=== PATIENT | female | born 1950 | race African-American/Black ===

== ENCOUNTER 2017-08-21 16:45 | Inpatient (IN) | payer OTHER ==
[2017-08-21 17:18] LABS: Arterial Blood Carboxyhemoglob 4.5 % (0-1.5); Blood Gas Oxyhemoglobin 86.3 % (94-97); Blood O2 Saturation 91.3 % (92-98.5)
--- NOTE | 2017-08-21 17:44 | RAD REPORT ---
EXAM DESCRIPTION: RAD - Chest Single View - 08/21/2017 5:35 pm CLINICAL HISTORY: Chest pain. COMPARISON: 01/19/2017 FINDINGS: Portable technique limits examination quality. Extensive bilateral pulmonary opacities are present, greater on the right, likely indicating pulmonar y edema or pneumonia. The heart is mildly prominent size. No displaced fractures.Tracheostomy tube is in place with tip above the brittnee.
[2017-08-21 17:55] LABS: Absolute Lymphocytes (CBC) 1.2 K/uL (0.7-4.9); Absolute Monocytes 0.9 K/uL (0.1-1.3); Absolute Neutrophil 5.4 K/uL (1.8-8.0); Eosinophils % 1.5 % (0-4.4); Hematocrit 39.3 % (36.0-45.0); Lymphocytes % 15.3 % (15.3-44.8); MCH 28.6 pg (27.0-35.0); MCV 92.2 fL (80-100); MPV 10.1 fL (7.6-11.3); Monocytes % 11.9 % (3.3-12.3); RBC Red Blood Cell Count 4.26 M/uL (3.86-4.86)
[2017-08-21 17:59] LABS: Protime INR 0.93
[2017-08-21 18:06] LABS: Potassium 5.2 mEq/L (3.6-5.0)
[2017-08-21 18:12] LABS: Albumin 4.1 g/dL (3.2-5.5); Bilirubin Direct 0.2 mg/dL (0-0.2); Bilirubin Total 0.3 mg/dL (0.3-1.2); Magnesium 1.9 mg/dL (1.8-2.5); Protein, Total 7.7 g/dL (6.0-8.3)
--- NOTE | 2017-08-21 18:12 | RAD REPORT ---
EXAM DESCRIPTION: CT - Head Brain Wo Cont - 08/21/2017 6:02 pm CLINICAL HISTORY: Altered consciousness COMPARISON: 10/01/2014, 02/18/2013 TECHNIQUE: All CT scans are performed using dose optimization technique as appropriate and may inclu de automated exposure control or mA/KV adjustment according to patient size. FINDINGS: No intracranial hemorrhage, hydrocephalus or extra-axial fluid collection.Moderate hypoden sity throughout the cerebral white matter is noted, progressive since the comparative study.No eviden ce of midline shift. The paranasal sinuses and mastoids are clear. The calvarium is intact. Vertebral arteries calcified. IMPRESSION: No acute intracranial abnormality. Mild to moderate progression in white matter hypodensity since comparative study.
[2017-08-21 18:55] LABS: Arterial Blood Carboxyhemoglob 3.8 % (0-1.5); Blood Gas Oxyhemoglobin 90.2 % (94-97); Blood O2 Saturation 94.9 % (92-98.5)
[2017-08-21] MEDS ORDERED: CEFTRIAXONE/SWI 1gm 1 GM/10 ML SYR ONE ×2 (19:21→19:53)
[2017-08-21] MEDS ORDERED: IPRATROPIUM BROM 0.5MG/2.5ML ONE (19:35)
[2017-08-21] MEDS ORDERED: ALBUTEROL 2.5 MG/3 ML NEB SOL ONE ×2 (19:35→20:13)
[2017-08-21] MEDS ORDERED: NA CHLORIDE 0.9% 1,000 ML ONE (19:53)
[2017-08-21] MEDS ORDERED: AZITHROMYCIN 500 MG/250 ML BAG ONE (19:53)
[2017-08-21] MEDS ORDERED: CLINDAMYCIN 900MG/D5W 900 MG/50 ML BAG IV ONE (19:53)
[2017-08-21 21:52] LABS: Urine Blood NEGATIVE (NEG); Urine Glucose NEGATIVE (NEG); Urine Protein 3+ (NEG); Urine pH 5.5 (5.0-7.0)
[2017-08-21] MEDS ORDERED: VANCOMYCIN 1.5 GM in NA CHLORIDE 0.9% 250 ML IVPB SCH (23:00)
[2017-08-21] MEDS ORDERED: FENTANYL CITR 100 MCG/2 ML ONE (23:01)
--- NOTE | 2017-08-21 23:05 | EDPHYS ---
Physician Documentation [facility] Name: Avelina Chino Age: 66 yrs Sex: Female : 1950 Arrival Date: 08/21/2017 Time: 16:53 Bed 3 Private MD: ED Physician Aaron Torres HPI: 08/21 22:45 This 66 yrs old Black Female presents to ER via Unassigned with complaints of Altered wa Mental Status. 22:45 The patient presents with per family, decreased mental status since yesterday. pt h/o wa tracheostomy. family advise, new lesions or brain and spinal cord per recent doctor's visit. pt opens eyes to voice but unable to give history. Onset: The symptoms/episode began/occurred yesterday. Possible causes: unknown. Associated signs and symptoms: Pertinent negatives: diarrhea, seizure, vomiting. Current symptoms: In the emergency department the patient's symptoms are unchanged from the initial presentation. It is unknown whether or not the patient has had similar symptoms in the past. The patient has been recently seen by a physician:. 22:47 Patient's baseline: Neuro: alert and fully oriented, Motor: no deficits, Speech: normal.wa Historical: - Allergies: 18:38 Iodine; sg 18:38 Lisinopril; sg - PMHx: 18:38 Atrial Fib; CHF; COPD; Diabetes - NIDDM; Hyperlipidemia; Hypertension; Pneumonia; Renal sg Disease; - Immunization history:: Adult Immunizations up to date. - Social history:: Smoking status: Patient/guardian denies using tobacco. - Ebola Screening: : Patient negative for fever greater than or equal to 101.5 degrees Fahrenheit, and additional compatible Ebola Virus Disease symptoms Patient denies exposure to infectious person Patient denies travel to an Ebola-affected area in the 21 days before illness onset No symptoms or risks identified at this time. ROS: 22:55 Constitutional: Negative for fever, chills, and weight loss, Eyes: Negative for injury, wa pain, redness, and discharge, ENT: Negative for injury, pain, and discharge, Neck: Negative for injury, pain, and swelling, Cardiovascular: Negative for chest pain, palpitations, and edema, Abdomen/GI: Negative for abdominal pain, nausea, vomiting, diarrhea, and constipation, Back: Negative for injury and pain, : Negative for injury, bleeding, discharge, and swelling, MS/Extremity: Negative for injury and deformity, Skin: Negative for injury, rash, and discoloration, Psych: Negative for depression, anxiety, suicide ideation, homicidal ideation, and hallucinations. 22:55 Respiratory: Positive for shortness of breath. 22:55 Neuro: Positive for altered mental status. Exam: 22:55 Head/Face: Normocephalic, atraumatic. Eyes: Pupils equal round and reactive to light, wa extra-ocular motions intact. Lids and lashes normal. Conjunctiva and sclera are non-icteric and not injected. Cornea within normal limits. Periorbital areas with no swelling, redness, or edema. ENT: Nares patent. No nasal discharge, no septal abnormalities noted. Tympanic membranes are normal and external auditory canals are clear. Oropharynx with no redness, swelling, or masses, exudates, or evidence of obstruction, uvula midline. Mucous membranes moist. Cardiovascular: Regular rate and rhythm with a normal S1 and S2. No gallops, murmurs, or rubs. Normal PMI, no JVD. No pulse deficits. Abdomen/GI: Soft, non-tender, with normal bowel sounds. No distension or tympany. No guarding or rebound. No evidence of tenderness throughout. Back: No spinal tenderness. No costovertebral tenderness. Full range of motion. Skin: Warm, dry with normal turgor. Normal color with no rashes, no lesions, and no evidence of cellulitis. MS/ Extremity: Pulses equal, no cyanosis. Neurovascular intact. Full, normal range of motion. 22:55 Constitutional: The patient appears lethargic, somnolent 22:55 Neck: External neck: noted trach in midline. 22:55 Respiratory: the patient does not display signs of respiratory distress, Respirations: shallow respirations, Breath sounds: coarse bilaterally. 22:55 Neuro: Orientation: somnolent although opens eyes to voice and moves appropriately to command. Vital Signs: 16:54 BP 143 / 70; Pulse 69; Resp 14; Pulse Ox 85% on 30% Venturi mask; Pain 0/10; ss 18:38 BP 134 / 70; Pulse 72; Resp 17; Pulse Ox 100% on 100% Simple Mask; sg 20:54 BP 93 / 58; Pulse 69; Resp 20; Pulse Ox 94% ; rv 21:09 BP 94 / 66; Pulse 67; Resp 16; Pulse Ox 100% on ETT vent; mg2 22:22 BP 132 / 86; Pulse 67; Resp 20; Pulse Ox 100% on ETT vent; jd3 23:38 BP 93 / 80; Pulse 71; Resp 18 S; Pulse Ox 100% on ETT vent; Pain 0/10; jd3 18:38 to trach sg 20:54 on ventilator thru trache tube rv 21:09 on ventilator via trache tube mg2 22:22 on ventilator via trache tube jd3 23:38 vent used as Bipap jd3 Procedures: 23:01 Performed trach replacement: Pt's uncuffed trach removed. replaced with a cuff one on sd first attempt. bilateral lung sounds noted post procedure. no complications. MDM: 19:30 Patient medically screened. sd 22:58 Differential Diagnosis: CVA, electrolyte abnormality, hypoglycemia, intracranial bleed, wa pneumonia, sepsis, UTI, volume depletion. Data reviewed: vital signs, nurses notes, lab test result(s), EKG, radiologic studies. Test interpretation: by ED physician or midlevel provider: CXR: bilateral pulm infiltrates. labs noted for 3+ proteinuria. renal insufficiency. K of 5.2. . Response to treatment: the patient's symptoms have markedly improved after treatment. Physician consultation: Leonardo Claire MD. ED course: changed trach to a cuffed one to allow for venting. abd given broadly to cover for pneumonia. 23:03 Test interpretation: by ED physician or midlevel provider: ABG noted for hypercarbia. sd 08/21 17:02 Order name: Basic Metabolic Panel; Complete Time: 19:18 [facility] 08/21 17:02 Order name: BNP; Complete Time: 19:18 [facility] 08/21 17:02 Order name: CBC with Diff; Complete Time: 18:08 [facility] 08/21 17:02 Order name: LFT's; Complete Time: 19:18 [facility] 08/21 17:02 Order name: Magnesium; Complete Time: 19:18 [facility] 08/21 17:02 Order name: PT-INR; Complete Time: 18:08 [facility] 08/21 17:02 Order name: Ptt, Activated; Complete Time: 18:08 [facility] 08/21 17:02 Order name: Troponin (emerg Dept Use Only); Complete Time: 19:18 [facility] 08/21 17:17 Order name: ABG; Complete Time: 18:08 bd 08/21 17:27 Order name: Sputum Culture sv 08/21 18:11 Order name: Blood Culture Adult (2) kdr 08/21 18:11 Order name: Urine Culture kdr 08/21 18:48 Order name: ABG bd 08/21 18:49 Order name: ABG Arterial Blood Gas; Complete Time: 22:33 EDMS 08/21 22:34 Interpretation: ABGPH 7.13. wa 08/21 17:02 Order name: XRAY Chest (1 view); Complete Time: 18:08 kdr 08/21 17:02 Order name: EKG; Complete Time: 17:03 kdr 08/21 17:02 Order name: Cardiac monitoring; Complete Time: 18:35 kdr 08/21 17:02 Order name: CT Head Brain wo Cont; Complete Time: 18:13 kdr 08/21 18:09 Order name: BIPAP [facility] 08/21 20:39 Order name: Urine Dipstick--Ancillary (enter results); Complete Time: 22:33 eb 08/22 00:34 Order name: ABG Arterial Blood Gas EDMT 08/22 00:42 Order name: Lactate EDMT 08/22 01:32 Order name: Procalcitonin [facility] 08/21 17:02 Order name: EKG - Nurse/Tech; Complete Time: 18:35 kdr 08/21 17:02 Order name: IV Saline Lock; Complete Time: 18:35 kdr 08/21 17:02 Order name: Labs collected and sent; Complete Time: 18:35 kdr 08/21 17:02 Order name: O2 Per Protocol; Complete Time: 18:35 kdr 08/21 17:02 Order name: O2 Sat Monitoring; Complete Time: 18:35 [facility] 08/21 17:02 Order name: Urine Dipstick-Ancillary (obtain specimen); Complete Time: 21:23 kdr 08/21 18:11 Order name: Venegas; Complete Time: 18:35 kdr Administered Medications: 19:31 Drug: Rocephin - (cefTRIAXone) 1 grams Route: IVPB; Infused Over: 30 mins; Site: right rv antecubital; 21:31 Follow up: Response: No adverse reaction rv 19:43 Drug: Albuterol 2.5 mg Route: Inhalation; ak1 20:04 Drug: Zithromax 500 mg Route: IVPB; Infused Over: 1 hrs; Site: right antecubital; ak1 21:30 Follow up: Response: No adverse reaction; IV Status: Completed infusion rv 20:04 Drug: NS 0.9% 1000 ml Route: IV; Rate: 1 bolus; Site: right antecubital; ak1 20:05 Drug: Rocephin - (cefTRIAXone) 1 grams Route: IVPB; Infused Over: 30 mins; Site: right ak1 antecubital; 21:31 Follow up: Response: No adverse reaction rv 21:23 Drug: Clindamycin 900 mg Route: IVPB; Infused Over: 30 mins; Site: right antecubital; mg2 23:00 Follow up: Response: No adverse reaction rv 23:02 Drug: fentaNYL (PF) 25 mcg Route: IVP; Site: right antecubital; mg2 08/22 01:07 Follow up: Response: No adverse reaction; Pain is decreased mg2 Disposition: 08/21 23:03 Critical Care:. sd Disposition: 08/21/17 23:04 Hospitalization ordered by Leonardo Claire for Inpatient Admission. Preliminary diagnosis are altered mental status, acute bilateral pneumonia, hypoxemia, respiratory distress. - Bed requested for Intensive Care Unit. - Status is Inpatient Admission. jd3 - Condition is Stable. - Problem is new. - Symptoms have improved. UTI on Admission? No Critical care time excluding procedures: 23:03 Critical care time: Bedside Care: 25 minutes, Consultation: 5 minutes, Family wa Intervention: 5 minutes. Total time: 35 minutes Signatures: Dispatcher [employer] EDArabella Munoz RN RN kl Gay, Steven, RN RN sg Rittger, Kevin, MD MD kdr Krenek, Amber, RN RN ak1 Aaron Torres MD MD wa Davies, Jonathon, RN RN jAlex Winters RN RN mg2 Cody Mckeon RN RN rv Corrections: (The following items were deleted from the chart) 23:42 23:04 Hospitalization Ordered by Leonardo Claire MD for Inpatient Admission. Preliminary diagnosis is altered mental status; acute bilateral pneumonia; hypoxemia; respiratory distress. Bed requested for Intensive Care Unit. Status is Inpatient Admission. Condition is Stable. Problem is new. Symptoms have improved. UTI on Admission? No. sd 08/22 01:28 08/21 23:42 08/21/2017 23:04 Hospitalization Ordered by Leonardo Claire MD for Inpatient kl Admission. Preliminary diagnosis is altered mental status; acute bilateral pneumonia; hypoxemia; respiratory distress. Bed requested for [facility] ER HOLD. Status is Inpatient Admission. Condition is Stable. Problem is new. Symptoms have improved. UTI on Admission? No. kl 08/22 02:40 01:28 08/21/2017 23:04 Hospitalization Ordered by Leonardo Claire MD for Inpatient jd3 Admission. Preliminary diagnosis is altered mental status; acute bilateral pneumonia; hypoxemia; respiratory distress. Bed requested for Intensive Care Unit. Status is Inpatient Admission. Condition is Stable. Problem is new. Symptoms have improved. UTI on Admission? No. kl
--- NOTE | 2017-08-21 23:05 | ER ---
Nurse's Notes [facility] Name: Avelina Chino Age: 66 yrs Sex: Female : 1950 Arrival Date: 08/21/2017 Time: 16:53 Bed 3 Private MD: Diagnosis: altered mental status;acute bilateral pneumonia;hypoxemia;respiratory distress Presentation: 08/21 16:54 Presenting complaint: EMS states: "her family reports that she hasn't been acting right ss since yesterday." Pt reportedly was seen by neurologist yesterday and found more "lesions" on her brain and spinal cord. Risk Assessment: Do you want to hurt yourself or someone else? Patient reports no desire to harm self or others. Initial Sepsis Screen: Does the patient have a suspected source of infection? No. Patient's initial sepsis screen is negative. 16:54 Acuity: SOL 2 ss 08/22 02:39 Onset of symptoms is unknown. Initial Sepsis Screen: Does the patient meet any 2 jd3 criteria? No. Patient's initial sepsis screen is negative. Care prior to arrival: None. Historical: - Allergies: 08/21 18:38 Iodine; sg 18:38 Lisinopril; sg - PMHx: 18:38 Atrial Fib; CHF; COPD; Diabetes - NIDDM; Hyperlipidemia; Hypertension; Pneumonia; Renal sg Disease; - Immunization history:: Adult Immunizations up to date. - Social history:: Smoking status: Patient/guardian denies using tobacco. - Ebola Screening: : Patient negative for fever greater than or equal to 101.5 degrees Fahrenheit, and additional compatible Ebola Virus Disease symptoms Patient denies exposure to infectious person Patient denies travel to an Ebola-affected area in the 21 days before illness onset No symptoms or risks identified at this time. Screenin:10 Abuse screen: Denies threats or abuse. Denies injuries from another. Nutritional sg screening: No deficits noted. Tuberculosis screening: No symptoms or risk factors identified. Never had TB. Fall Risk None identified. Assessment: 16:55 General: RT at bedside. ss 17:10 General: Appears in no apparent distress. uncomfortable, ill, obese, well groomed, well sg developed, well nourished, Behavior is calm, cooperative, appropriate for age. Pain: Unable to use pain scale. Patient is disoriented. Neuro: Level of Consciousness is awake, alert, obeys commands, Oriented to person, place, time, Holistic Health Practitioner are equal bilaterally Speech is normal, Facial symmetry appears normal. Cardiovascular: Heart tones S1 S2 present Capillary refill is brisk in bilateral fingers. Respiratory: Airway is patent Trachea midline Respiratory effort is even, labored, Respiratory pattern is regular, symmetrical, Sputum is thick, green purulent Breath sounds are coarse. GI: Abdomen is round non-distended, obese, Bowel sounds present X 4 quads. : No signs and/or symptoms were reported regarding the genitourinary system. EENT: No signs and/or symptoms were reported regarding the EENT system. Derm: Skin is intact, is thin, Skin is dry, Skin is normal, Skin temperature is cool. Musculoskeletal: No signs and/or symptoms reported regarding the musculoskeletal system. 18:30 Reassessment: Patient appears in no apparent distress at this time. Patient and/or sg family updated on plan of care and expected duration. Pain level reassessed. Patient is alert, oriented x 3, equal unlabored respirations, skin warm/dry/pink. Patient states symptoms have not improved. 20:05 Reassessment: trach changed out to a size 4 cuffed by ERP with RT at bedside. pt placed ak1 on vent with settings at SIMV 14, 600TV, pressure support of 10, PEEP 5 and 100% oxygen. 20:53 Reassessment:. rv 22:12 Reassessment: Patient appears in no apparent distress at this time. Patient and/or jd3 family updated on plan of care and expected duration. Pain level reassessed. pt son's number is [phone]-- Tho Mejia. pt in no apparent distress. eyes closed, even and unlabored using ventilator as BiPAP for pt with tracheostomy. Vital Signs: 16:54 BP 143 / 70; Pulse 69; Resp 14; Pulse Ox 85% on 30% Venturi mask; Pain 0/10; ss 18:38 BP 134 / 70; Pulse 72; Resp 17; Pulse Ox 100% on 100% Simple Mask; sg 20:54 BP 93 / 58; Pulse 69; Resp 20; Pulse Ox 94% ; rv 21:09 BP 94 / 66; Pulse 67; Resp 16; Pulse Ox 100% on ETT vent; mg2 22:22 BP 132 / 86; Pulse 67; Resp 20; Pulse Ox 100% on ETT vent; jd3 23:38 BP 93 / 80; Pulse 71; Resp 18 S; Pulse Ox 100% on ETT vent; Pain 0/10; jd3 18:38 to trach sg 20:54 on ventilator thru trache tube rv 21:09 on ventilator via trache tube mg2 22:22 on ventilator via trache tube jd3 23:38 vent used as Bipap jd3 ED Course: 16:53 Patient arrived in ED. ss 16:54 Arm band placed on right wrist. ss 16:55 Triage completed. ss 17:02 Jose Mack MD is Attending Physician. kdr 17:20 Patient has correct armband on for positive identification. Bed in low position. Call sg light in reach. Side rails up X2. Pulse ox on. NIBP on. 17:22 EKG done, by director technical. reviewed by Jose Mack MD. 3 17:33 X-ray completed. Portable x-ray completed in exam room. Patient tolerated procedure bb2 well. 17:34 XRAY Chest (1 view) In Process Unspecified. EDMS 17:48 Inserted saline lock: 22 gauge in right antecubital area, using aseptic technique. ss Blood collected. 18:02 CT Head Brain wo Cont In Process Unspecified. EDMS 19:30 Attending Physician role handed off by Jose Mack MD wa 19:30 Aaron Torres MD is Attending Physician. wa 20:35 Venegas cath inserted, using sterile technique, 16 Fr., by ED staff, balloon inflated, to jd3 gravity drainage, urine specimen collected. other placed by RV RN. 23:03 Leonardo Claire MD is Hospitalizing Provider. wa 23:24 Juan Manuel Pena, RN is Primary Nurse. jd3 23:25 Primary Nurse role handed off by Juan Manuel Pena RN j 23:26 Juan Manuel Pena RN is Primary Nurse. jd3 08/22 02:37 No provider procedures requiring assistance completed. Patient admitted, IV remains in jd3 place. Administered Medications: 08/21 19:31 Drug: Rocephin - (cefTRIAXone) 1 grams Route: IVPB; Infused Over: 30 mins; Site: right rv antecubital; 21:31 Follow up: Response: No adverse reaction 19:43 Drug: Albuterol 2.5 mg Route: Inhalation; ak1 20:04 Drug: Zithromax 500 mg Route: IVPB; Infused Over: 1 hrs; Site: right antecubital; ak1 21:30 Follow up: Response: No adverse reaction; IV Status: Completed infusion rv 20:04 Drug: NS 0.9% 1000 ml Route: IV; Rate: 1 bolus; Site: right antecubital; ak1 20:05 Drug: Rocephin - (cefTRIAXone) 1 grams Route: IVPB; Infused Over: 30 mins; Site: right ak1 antecubital; 21:31 Follow up: Response: No adverse reaction rv 21:23 Drug: Clindamycin 900 mg Route: IVPB; Infused Over: 30 mins; Site: right antecubital; mg2 23:00 Follow up: Response: No adverse reaction rv 23:02 Drug: fentaNYL (PF) 25 mcg Route: IVP; Site: right antecubital; mg2 16 01:07 Follow up: Response: No adverse reaction; Pain is decreased mg2 Output: 02:18 Urine: 360ml (Venegas); Total: 360ml. rv Outcome: 08/21 23:04 Decision to Hospitalize by Provider. dc 08/22 02:40 Patient left the ED. janderson Signatures: Dispatcher [employer] EDMS Zack Meza RN RN Jose Mack MD MD kdr Smirch, Shelby, RN RN ss Krenek, Amber, RN RN ak1 Aaron Torres MD MD wa Davies, Jonathon, RN RN jd3 Selene Chacko bb2 Alex Arias RN RN mg2 Laverne Carvajal 3 Cody Mckeon RN RN rv Corrections: (The following items were deleted from the chart) 08/21 16:56 16:54 BP 143 / 70; Pulse 69bpm; Resp 14bpm; Pulse Ox 85% RA; Pain 0/10; ss 21:20 21:09 Pulse 67bpm; Resp 16bpm; Pulse Ox 100% ET / Ventilator; on ventilator via trache mg2 tube; mg2 22:31 22:12 Reassessment: pt son's number is [phone]-- Tho grubbs janderson
[2017-08-21] MEDS ORDERED: ALBUTEROL 2.5 MG/3 ML NEB SOL NEB PRN (23:33)
[2017-08-21] MEDS ORDERED: ONDANSETRON 4 MG/2 ML VIAL IV PRN (23:33)
[2017-08-21] MEDS ORDERED: IPRATROPIUM BROM 0.5MG/2.5ML NEB PRN (23:33)
[2017-08-21] MEDS ORDERED: NA CHLORIDE 0.9% 1,000 ML IV SCH (23:45)
[2017-08-22 00:29] LABS: Arterial Blood Carboxyhemoglob 2.1 % (0-1.5); Blood Gas Oxyhemoglobin 95.4 % (94-97); Blood O2 Saturation 98.6 % (92-98.5)
[2017-08-22] MEDS ORDERED: D50W 25 GM/50 ML SYRINGE IV PRN (03:06)
[2017-08-22] MEDS: INSULIN -REGULAR HUMAN 50 UNIT/0.5 ML ML SQ SCH ×5 (03:10→23:45)
[2017-08-22] MEDS ORDERED: PIPERACIL/TAZO 3.375 GM VIAL IV ONE (03:14)
[2017-08-22] MEDS ORDERED: NA CHLORIDE 0.9% 100 ML ONE (03:14)
[2017-08-22] MEDS ORDERED: VANCOMYCIN 2 GM/500 ML BAG ONE (03:16)
[2017-08-22] MEDS ORDERED: D5 0.9 NS 1,000 ML IV SCH (04:00)
--- NOTE | 2017-08-22 04:49 | P.HP ---
Certification for Inpatient Patient admitted to: Inpatient With expected LOS: >2 Midnights Practitioner: I am a practitioner with admitting privileges, knowledge of patient current condition, hospital course, and medical plan of care. Services: Services provided to patient in accordance with Admission requirements found in Title 42 Section 412.3 of the Code of Federal Regulations Patient History Date of Service: 08/21/17 Reason for admission: acute on chronic respiratory failure History of Present Illness: Ms Chino is a 66 years old woman with a complicated medical history, including COPD with permanent oxygen dependent, S/P tracheostomy, NIIDM, HTN, COPD, who become more sleepy since yesterday according to her family members. There is no history of fever or chills, she was more SOB than usual, having increasing cough. No history of chest pain, nausea or vomiting reported. At arrival the patient was on respiratory distress, she was placed on BiPAP but did not work well, and finally end up with ventilator support through tracheostomy. Lab work remarkable for normal WBC count, lactic acid and procalcitonin were normal. CXR shows bilateral opacities, clinically she was on the dryer side. CT head shows no acute abnormalities but has mild to moderate progression in white matter hypodensity since comparative study. Allergies lisinopril Allergy (Mild, Verified 08/12/15 06:53) Rash iodine Allergy (Verified 08/12/15 06:53) Unknown Adhesives Allergy (Uncoded 11/12/16 14:46) Unknown No Known Allergy (Uncoded 01/12/17 14:16) Unknown Home Medications: Amlodipine [Norvasc*] 10 mg PO DAILY 10/08/15 Metformin HCl [Glucophage] 1,000 mg PO BID 10/08/15 Metoprolol Succinate [Toprol Xl*] 100 mg PO BID 10/08/15 Morphine Sulfate [Ms Contin] 60 mg PO Q6H 10/08/15 Cholecalciferol (Vitamin D3) [Vitamin D3] 2,000 unit PO DAILY 02/18/16 Furosemide 40 mg PO DAILY 02/18/16 Levothyroxine [Synthroid*] 75 mcg PO [id number] 02/18/16 Phenylephrine HCl/[place] Butter [Preparation H Suppository] 1 each RC PRN PRN 02/21 Sertraline [Zoloft*] 2 tab PO DAILY 12/12/16 Spironolactone [Aldactone*] 25 mg PO DAILY 02/18/16 Fluticasone/Salmeterol [Advair 250/50 Diskus*] 1 puff IH BID #1 disk 02/20/16 Cefuroxime [Ceftin] 500 mg PO BID #20 tab 01/20/17 Methylprednisolone [Medrol dosepack] 4 mg PO DIRECTED #1 margie 01/20/17 - Past Medical/Surgical History Diabetic: Yes -: Hypertension -: Chronic Obstructive Pulmonary Disease -: Depression with anxiety -: Morbid Obesity -: Hemorrhoids -: Atrial fibrillation -: Obstructive Sleep Apnea, arthritis -: Chronic Respiratory Failure with Tracheostomy -: Hepatitis -: MRSA present.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 - Family History Father -: Hypertension, Diabetes Mother -: Hypertension, Lung disease, GI disease, Diabetes, Stroke - Social History Smoking Status: Unknown if ever smoked Alcohol use: No CD- Drugs: No Caffeine use: Yes Place of Residence: Home Review of Systems is unable to be obtained (patient was obtunded) Physical Examination - Vital Signs Temperature: 98 F Blood Pressure: 124/72 Pulse: 71 Respirations: 14 Pulse Ox (%): 99 - Physical Exam General: In no apparent distress, Unresponsive HEENT: Atraumatic, PERRLA, Other (mucous membr. dry), Sclerae nonicteric Neck: Supple, 2+ carotid pulse no bruit, No LAD, Without JVD or thyroid abnormality Respiratory: Normal air movement, Crackles/rales (bilateral crackles) Cardiovascular: Normal S1 S2, No gallops Gastrointestinal: Normal bowel sounds, No tenderness Musculoskeletal: No tenderness Integumentary: No rashes Neurological: Normal tone, Sensation intact, Normal affect Lymphatics: No axilla or inguinal lymphadenopathy - Studies Laboratory Data (last 24 hrs) 08/21/17 17:44: PT 11.0, INR 0.93, APTT 23.3 L 08/21/17 17:44: WBC 7.7, Hgb 12.2, Hct 39.3, Plt Count 211 08/21/17 17:44: B-Natriuretic Peptide 160 H 08/21/17 17:44: Sodium 138, Potassium 5.2 H, BUN 39 H, Creatinine 1.94 H, Glucose 102, Magnesium 1.9, Total Bilirubin 0.3, AST 32, ALT 16, Alkaline Phosphatase 100 Assessment and Plan - Problems (Diagnosis) (1) Acute and chronic respiratory failure Current Visit: Yes Status: Acute Qualifiers: Respiratory failure complication: hypoxia and hypercapnia Qualified Code(s) : J96.21 - Acute and chronic respiratory failure with hypoxia; J96.22 - Acute and chronic respiratory failure with hypercapnia (2) Bilateral pneumonia Current Visit: Yes Status: Acute Qualifiers: Pneumonia type: due to unspecified organism Lung location: unspecified part of lung Qualified Code(s): J18.9 - Pneumonia, unspecified organism (3) COPD exacerbation Current Visit: Yes Status: Acute (4) Acute encephalopathy Current Visit: Yes Status: Acute (5) Diabetes mellitus Onset Date: 10/02/14 Current Visit: No Status: Chronic - Plan The patient will be admitted to the hospital due to acute on chronic respiratory failure secondary to bilateral pneumonia. She require ventilator support. ABG shows significant CO2 retention. Will repeat serial lab work to evaluate progress. Order empiric treatment with IV Vancomycin and Zosyn. Also IV steroids and breathing treatments. Consult Dr Estrada. - Advance Directives Does patient have a Living Will: No Does patient have a Durable POA for Healthcare: No - Code Status/Comfort Care Code Status Assessed: Yes Code Status: Full Code Critical Care: Yes (30 minutes) Time Spent Managing Pts Care (In Minutes): 90
[2017-08-22] MEDS: METHYLPREDNISOLONE 40 MG INJ IV SCH ×3 (05:04→20:40)
[2017-08-22 05:20] LABS: Arterial Blood Carboxyhemoglob 2.1 % (0-1.5); Blood Gas Oxyhemoglobin 92.5 % (94-97); Blood O2 Saturation 94.9 % (92-98.5)
[2017-08-22 05:55] LABS: Absolute Lymphocytes (CBC) 0.8 K/uL (0.7-4.9); Absolute Monocytes 0.6 K/uL (0.1-1.3); Absolute Neutrophil 4.7 K/uL (1.8-8.0); Basophils % 0.4 % (0-1.3); Eosinophils % 0.7 % (0-4.4); Lymphocytes % 13.1 % (15.3-44.8); MCH 28.7 pg (27.0-35.0); MCV 90.2 fL (80-100); MPV 10.6 fL (7.6-11.3); Monocytes % 9.7 % (3.3-12.3); RBC Red Blood Cell Count 3.44 M/uL (3.86-4.86)
--- NOTE | 2017-08-22 06:13 | EKG ---
Test Date: 2017-08-21 Test Time: 17:16:34 Correction Warden: AGAPITO MEASUREMENT RESULTS: Intervals: Rate: 75 OR: 200 QRSD: 104 QT: 420 QTc: 469 [place]: P: 42 OR: 200 QRS: 4 T: 74 INTERPRETIVE STATEMENTS: Normal sinus rhythm Possible Left atrial enlargement Borderline ECG Compared to ECG 01/19/2017 13:30:43 No significant changes Electronically Signed On 08-22-17 06:12:56 CDT by Brady Allen
[2017-08-22 06:25] LABS: Albumin 3.1 g/dL (3.2-5.5); Bilirubin Total 0.6 mg/dL (0.3-1.2); Magnesium 1.7 mg/dL (1.8-2.5); Potassium 4.1 mEq/L (3.6-5.0); Protein, Total 5.9 g/dL (6.0-8.3)
[2017-08-22] MEDS ORDERED: VANCOMYCIN/NS 1 gm 1 GM/250 ML BAG IV ONE (07:45)
[2017-08-22] MEDS ORDERED: MAGNESIUM SULFATE 1 gm IVPB 1 GM/100 ML BAG IV ONE (08:00)
[2017-08-22] MEDS ORDERED: PIPER/TAZO/NS 3.375gm 3.375 GM/100 ML BAG IVPB SCH ×2 (09:00)
[2017-08-22] MEDS ORDERED: VANCOMYCIN 1 GM in NA CHLORIDE 0.9% 500 ML IVPB SCH (09:00)
[2017-08-22] MEDS: PIPER/TAZO/NS 3.375gm 3.375 GM/100 ML BAG IVPB SCH ×2 (10:07→16:36)
--- NOTE | 2017-08-22 12:00 | P.PN ---
Subjective Date of Service: 08/22/17 Chief Complaint: acute on chronic respiratory failure Subjective: Improving (Patient is doing much better she was admitted with hypoxic hypercapnic respiratory failure patient has a trach at [facility] now) Review of Systems is unable to be obtained Physical Examination - Vital Signs Temperature: 97.8 F Blood Pressure: 142/48 Pulse: 67 Respirations: 13 Pulse Ox (%): 97 - Physical Exam General: Alert, Cooperative Neck: Supple Respiratory: Clear to auscultation bilaterally, Diminished Cardiovascular: No edema, Normal pulses Gastrointestinal: Normal bowel sounds, Soft and benign - Studies Laboratory Data (last 24 hrs) 08/21/17 17:44: PT 11.0, INR 0.93, APTT 23.3 L 08/21/17 17:44: WBC 7.7, Hgb 12.2, Hct 39.3, Plt Count 211 08/21/17 17:44: B-Natriuretic Peptide 160 H 08/21/17 17:44: Sodium 138, Potassium 5.2 H, BUN 39 H, Creatinine 1.94 H, Glucose 102, Magnesium 1.9, Total Bilirubin 0.3, AST 32, ALT 16, Alkaline Phosphatase 100 Microbiology Data (last 24 hrs): 08/21/17 18:50 Blood - Blood Anaerobic Blood Culture - Final 08/21/17 19:00 Blood - Blood Anaerobic Blood Culture - Final Assessment & Plan - Problems (Diagnosis) (1) Acute and chronic respiratory failure Current Visit: Yes Status: Acute Plan: Patient is 66 years of age admitted with acute on chronic respiratory failure the hypercapnic on admission she is a trach white count is normal renal insufficiency sputum cultures pending bilateral patchy opacity possible pulmonary edema she is current 30% oxygen and is doing better possible trach collar tomorrow high risk for thrombo start on empiric Eliquis IV Lasix for the possibility of heart failure bronchodilators Qualifiers: Respiratory failure complication: hypoxia and hypercapnia Qualified Code(s) : J96.21 - Acute and chronic respiratory failure with hypoxia; J96.22 - Acute and chronic respiratory failure with hypercapnia
[2017-08-22] MEDS: ARFORMOTEROL TARTRATE 15 MCG/2 ML VIAL.NEB NEB SCH ×2 (12:15→21:06)
[2017-08-22] MEDS: FUROSEMIDE 20 MG/ 2ML VIAL IV SCH ×2 (12:25→16:37)
--- NOTE | 2017-08-22 17:43 | RAD REPORT ---
EXAM DESCRIPTION: VASExtrem Venous W Compress Bil08/22/2017 5:01 pm CLINICAL HISTORY: Bilateral leg swelling COMPARISON: 2016 FINDINGS: The common femoral, superficial femoral, popliteal and posterior tibial veins bilaterally are compressible and demonstrate augmentation. Doppler demonstrates good flow. IMPRESSION: No evidence of deep venous thrombosis involving either lower extremity.
[2017-08-22] MEDS: APIXABAN 2.5 MG TABLET PO SCH ×2 (17:56→20:37)
[2017-08-22] MEDS: ACETAMINOPHEN 500 MG TAB PO PRN (18:43)
[2017-08-22] MEDS ORDERED: ARFORMOTEROL TARTRATE 15 MCG/2 ML VIAL.NEB NEB SCH (20:00)
[2017-08-23] MEDS: PIPER/TAZO/NS 3.375gm 3.375 GM/100 ML BAG IVPB SCH ×3 (00:19→16:27)
[2017-08-23] MEDS: AMLODIPINE 10 MG TAB PO SCH (03:11)
[2017-08-23] MEDS: METHYLPREDNISOLONE 40 MG INJ IV SCH (04:50)
[2017-08-23] MEDS: ACETAMINOPHEN 500 MG TAB PO PRN (05:18)
[2017-08-23 05:29] LABS: Hematocrit 36.7 % (36.0-45.0); MCH 28.9 pg (27.0-35.0); MCV 90.4 fL (80-100); MPV 10.4 fL (7.6-11.3); RBC Red Blood Cell Count 4.06 M/uL (3.86-4.86)
[2017-08-23 05:40] LABS: Magnesium 1.7 mg/dL (1.8-2.5)
[2017-08-23] MEDS: HYDRALAZINE HCL 20 MG/ML VIAL IV PRN ×2 (05:42→14:06)
[2017-08-23] MEDS: INSULIN -REGULAR HUMAN 50 UNIT/0.5 ML ML SQ SCH ×4 (06:00→20:45)
[2017-08-23] MEDS: TRAMADOL HCL 50 MG TAB PO PRN ×2 (06:35→20:44)
[2017-08-23] MEDS ORDERED: TRAMADOL HCL 50 MG TAB ONE (06:37)
[2017-08-23] MEDS ORDERED: MAGNESIUM SULFATE 1 gm IVPB 1 GM/100 ML BAG IV ONE (08:00)
[2017-08-23] MEDS ORDERED: PNEUMOCOCCAL VACCINE 0.5 ML IMVAC ONE (08:00)
[2017-08-23] MEDS: ARFORMOTEROL TARTRATE 15 MCG/2 ML VIAL.NEB NEB SCH ×2 (08:10→19:42)
[2017-08-23] MEDS: APIXABAN 2.5 MG TABLET PO SCH (09:30)
[2017-08-23] MEDS: FUROSEMIDE 20 MG/ 2ML VIAL IV SCH (09:31)
--- NOTE | 2017-08-23 11:07 | P.PN ---
Subjective Date of Service: 08/23/17 Chief Complaint: acute on chronic respiratory failure Subjective: Improving (Patient is alert responsive cooperative currently on trach collar planing of left hip pain) Review of Systems General: Weakness Respiratory: Shortness of Breath Musculoskeletal: Other (Pain in the left hip buttock region) Physical Examination - Vital Signs Temperature: 97.2 F Blood Pressure: 165/90 Pulse: 85 Respirations: 21 Pulse Ox (%): 100 - Physical Exam General: Alert, Moderate distress HEENT: Atraumatic Neck: Supple Respiratory: Diminished, Expiratory wheezes Cardiovascular: No edema, Normal S1 S2 Musculoskeletal: Other (Patient is able to lift her left leg no problems with it internal or external rotation complaining of pain in that area) - Studies Microbiology Data (last 24 hrs): 08/21/17 18:00 Sputum Gram Stain - Final 08/21/17 19:00 Blood - Blood Anaerobic Blood Culture - Final 08/21/17 18:50 Blood - Blood Anaerobic Blood Culture - Final Assessment & Plan - Problems (Diagnosis) (1) Acute and chronic respiratory failure Current Visit: Yes Status: Acute Plan: Patient did well yesterday and was removed from the ventilator currently on trach collar very comfortable sats at this pressure little elevated the need to resume all her home medications and diet patient is at risk for thromboembolism echocardiogram pending kidney function is improving procedures CT angio to rule out PE tomorrow patient has 3+ gram-negative rods in the sputum continue with Zosyn until ID is available Qualifiers: Respiratory failure complication: hypoxia and hypercapnia Qualified Code(s) : J96.21 - Acute and chronic respiratory failure with hypoxia; J96.22 - Acute and chronic respiratory failure with hypercapnia (2) Pain, joint, hip, left Current Visit: Yes Status: Acute Plan: Patient has been complaining of pain in the hip joint denies any recent falls no problems with extension abduction and abduction rule order x-ray the resume her home pain medications
--- NOTE | 2017-08-23 11:26 | RAD REPORT ---
EXAM DESCRIPTION: RAD - Chest Single View - 08/23/2017 5:53 am CLINICAL HISTORY: Respiratory failure Chest pain. COMPARISON: Chest Single View dated 08/21/2017; Chest Single View dated 01/19/2017; Chest Single View dated 10/13/2016; Chest Single View dated 02/19/2016 FINDINGS: Portable technique limits examination quality. Significant improvement in lung aeration is noted since 08/21/2017. The heart is mildly enlarged in s ize. Tracheostomy is noted.Tortuous thoracic aorta. IMPRESSION: Significant improvement lung aeration since 08/21/2017.
[2017-08-23] MEDS: SERTRALINE HCL 100 MG TAB PO SCH (11:46)
[2017-08-23] MEDS: SPIRONOLACTONE 25 MG TABLET PO SCH (11:46)
[2017-08-23] MEDS: MORPHINE 15 MG IR TAB PO SCH (11:47)
[2017-08-23] MEDS: predniSONE 20 MG TAB PO SCH ×2 (11:47→20:44)
--- NOTE | 2017-08-23 12:34 | RAD REPORT ---
EXAM DESCRIPTION: RAD - Hip Left 2 View - 08/23/2017 12:24 pm CLINICAL HISTORY: Pain in the left hip COMPARISON: Hip Left 2 View dated 01/07/2017; Hip Left 2 View dated 12/13/2015 FINDINGS: The study is extremely limited due to soft tissue artifact. Arthritic changes are likely p resent. Bone detail is quite obscured, however, no gross fracture, dislocation or evidence of AVN see n.
[2017-08-23] MEDS: NACHLORIDE 0.45% 1,000 ML IV SCH (13:31)
[2017-08-23] MEDS: PREGABALIN 75 MG CAP PO SCH ×2 (13:31→20:44)
[2017-08-23] MEDS ORDERED: VANCOMYCIN 1.75 GM in NA CHLORIDE 0.9% 500 ML IVPB SCH (17:00)
[2017-08-23] MEDS: APIXABAN 5 MG TABLET PO SCH (20:44)
[2017-08-23] MEDS ORDERED: APIXABAN 5 MG TABLET PO SCH (21:00)
[2017-08-23] MEDS ORDERED: HOME MED 1 EA UNK (Metformin Hcl [Glucophage] 1,000 MG) PO SCH (21:00)
[2017-08-23] MEDS ORDERED: HOME MED 1 EA UNK (Metoprolol Tartrate [Metoprolol Tartrate] 100 MG) PO SCH (21:00)
[2017-08-24] MEDS: PIPER/TAZO/NS 3.375gm 3.375 GM/100 ML BAG IVPB SCH (01:04)
[2017-08-24] MEDS: HYDRALAZINE HCL 20 MG/ML VIAL IV PRN ×3 (01:06→17:06)
[2017-08-24] MEDS: NACHLORIDE 0.45% 1,000 ML IV SCH ×2 (01:20→14:37)
[2017-08-24] MEDS: TRAMADOL HCL 50 MG TAB PO PRN ×3 (03:25→18:27)
[2017-08-24 05:50] LABS: Hematocrit 38.5 % (36.0-45.0); MCH 28.7 pg (27.0-35.0); MCV 90.3 fL (80-100); MPV 10.5 fL (7.6-11.3); RBC Red Blood Cell Count 4.26 M/uL (3.86-4.86)
[2017-08-24] MEDS ORDERED: LEVOTHYROXINE SOD 0.112 MG TAB PO SCH (06:00)
[2017-08-24 06:05] LABS: Potassium 4.1 mEq/L (3.6-5.0)
[2017-08-24 06:39] VITALS: BMI 34.0
[2017-08-24] MEDS ORDERED: MAGNESIUM SULFATE 1 gm IVPB 1 GM/100 ML BAG IV ONE (07:00)
[2017-08-24] MEDS: INSULIN -REGULAR HUMAN 50 UNIT/0.5 ML ML SQ SCH ×3 (07:30→17:05)
--- NOTE | 2017-08-24 08:33 | P.PN ---
Subjective Date of Service: 08/24/17 Chief Complaint: acute on chronic respiratory failure Subjective: Other (Patient feeling better. Less short of breath noted.) Physical Examination - Vital Signs Temperature: 97.3 F Blood Pressure: 112/78 Pulse: 81 Respirations: 18 Pulse Ox (%): 98 - Physical Exam General: Alert, In no apparent distress, Oriented x3, Cooperative HEENT: Atraumatic Neck: Supple, Other (trach collar in place) Respiratory: Expiratory wheezes (bilateral) Cardiovascular: Normal pulses, Regular rate/rhythm Gastrointestinal: Normal bowel sounds, Soft and benign, Non-distended, No tenderness, No masses, No rebound, No guarding Musculoskeletal: No erythema, No tenderness, No warmth Integumentary: No erythema, No warmth, No cyanosis Neurological: Normal speech, Normal strength at 5/5 x4 extr, Normal tone, Normal affect - Studies Microbiology Data (last 24 hrs): 08/21/17 18:00 Sputum Gram Stain - Final Medications List Reviewed: Yes Assessment & Plan - Problems (Diagnosis) (1) Acute and chronic respiratory failure Current Visit: Yes Status: Acute Plan: Secondary to COPD exacerbation with noted sputum culture positive for Pseudomonas and Proteus. Will discontinue Zosyn. Will change to meropenem. Patient will likely need meropenem for 7 days. Will discuss with pulmonology about the need for possible PICC line and IV antibiotic therapy. Will continue with COPD treatment. Will wean off oxygen. Pulmonology recommended CT angiogram to evaluate for possible pulmonary embolism. Patient with history of atrial fibrillation. Patient on anti coagulation therapy. Qualifiers: Respiratory failure complication: hypoxia and hypercapnia Qualified Code(s) : J96.21 - Acute and chronic respiratory failure with hypoxia; J96.22 - Acute and chronic respiratory failure with hypercapnia (2) Atrial fibrillation Current Visit: No Status: Chronic Plan: Patient with history of atrial fibrillation. Patient on anti coagulation therapy. Qualifiers: Atrial fibrillation type: chronic Qualified Code(s): I48.2 - Chronic atrial fibrillation (3) Chronic pain Current Visit: No Status: Chronic Plan: Will verify home medications. Patient with chronic pain to the buttocks region (4) Congestive heart failure (CHF) Onset Date: 10/09/15 Current Visit: No Status: Chronic Plan: Will check echocardiogram. Patient with history of diastolic dysfunction. Currently stable this time. Qualifiers: Heart failure type: diastolic Heart failure chronicity: unspecified Qualified Code(s): I50.30 - Unspecified diastolic (congestive) heart failure (5) Depression with anxiety Onset Date: 01/20/17 Current Visit: No Status: Chronic Plan: Will continue with her medication. (6) Hypertension Onset Date: 01/20/17 Current Visit: No Status: Chronic Plan: Will continue with medication. Will monitor and adjust appropriately. Qualifiers: Hypertension type: essential hypertension Qualified Code(s): I10 - Essential (primary) hypertension (7) Hypomagnesemia Onset Date: 02/18/16 Current Visit: No Status: Acute Plan: Will monitor and replace appropriately. Replacement protocol in place. (8) Hypothyroidism Current Visit: No Status: Chronic Plan: Continue with her medication. Qualifiers: Hypothyroidism type: unspecified Qualified Code(s): E03.9 - Hypothyroidism , unspecified (9) Obesity Onset Date: 02/18/16 Current Visit: No Status: Chronic Plan: Will address lifestyle modification education. Qualifiers: Obesity type: due to excess calories Obesity classification: adult class 1 (BMI 30 - 34.9) Serious obesity comorbidity presence: with serious comorbidity Body mass index: BMI 34.0-34.9 Qualified Code(s): E66.09 - Other obesity due to excess calories; Z68.34 - Body mass index (BMI) 34.0-34.9, adult (10) Obstructive sleep apnea Onset Date: 01/20/17 Current Visit: No Status: Chronic Plan: Patient with history of obstructive sleep apnea. This can be further addressed as an outpatient. (11) COPD (chronic obstructive pulmonary disease) Current Visit: No Status: Acute Plan: Continue with COPD treatment. Will discuss with pulmonology. Qualifiers: COPD type: COPD with acute exacerbation Qualified Code(s): J44.1 - Chronic obstructive pulmonary disease with (acute) exacerbation (12) Renal insufficiency Current Visit: Yes Status: Acute Plan: Will continue with IV fluids. (13) Hyperglycemia Current Visit: Yes Status: Acute Plan: Patient with hyperglycemia. Patient on IV steroids. Will check A1c. Discharge Plan: Home Plan to discharge in: 48 Hours - Code Status/Comfort Care Code Status Assessed: Yes Time Spent Managing Pts Care (In Minutes): 55
[2017-08-24] MEDS ORDERED: Meropenem 1,000 MG in NA CHLORIDE 0.9% 100 ML IV SCH (09:00)
[2017-08-24] MEDS ORDERED: FUROSEMIDE 40 MG TABLET PO SCH (09:00)
[2017-08-24] MEDS ORDERED: AMLODIPINE 5 MG TAB PO SCH (09:00)
[2017-08-24] MEDS ORDERED: Meropenem 1000 MG/VIAL IV SCH (09:00)
[2017-08-24] MEDS: ARFORMOTEROL TARTRATE 15 MCG/2 ML VIAL.NEB NEB SCH (09:05)
[2017-08-24] MEDS: MORPHINE 15 MG IR TAB PO SCH (09:12)
[2017-08-24] MEDS: PREGABALIN 75 MG CAP PO SCH (09:12)
[2017-08-24] MEDS: AMLODIPINE 10 MG TAB PO SCH (09:13)
[2017-08-24] MEDS: SERTRALINE HCL 100 MG TAB PO SCH (09:13)
[2017-08-24] MEDS: predniSONE 20 MG TAB PO SCH (09:14)
[2017-08-24] MEDS: SPIRONOLACTONE 25 MG TABLET PO SCH (09:15)
[2017-08-24] MEDS: APIXABAN 5 MG TABLET PO SCH (09:17)
--- NOTE | 2017-08-24 11:32 | ECHO ---
HEIGHT: 5 ft 6 in WEIGHT: 210 lb 8 oz DATE OF STUDY: 08/14/[address]: Mike Estrada MD 2-DIMENSIONAL: YES M.MODE: YES DOPPLER: YES COLOR FLOW: YES TDS: NO PORTABLE: NO DEFINITY: NO BUBBLE STUDY: NO DIAGNOSIS: RESPIRATORY FAILURE CARDIAC HISTORY: CATHERIZATION: NO SURGERY: NO PROSTHETIC VALVE: NO PACEMAKER: NO MEASUREMENTS (cm) DIASTOLIC (NORMALS) SYSTOLIC (NORMALS) IVSd 1.2 (0.6-1.2) LA Diam 3.0 (1.9-4.0) LVEF 70% LVIDd 4.1 (3.5-5.7) LVIDs 2.5 (2.0-3.5) %FS 39% LVPWd 1.5 (0.6-1.2) Ao Diam 2.9 (2.0-3.7) 2 DIMENSIONAL ASSESSMENT: RIGHT ATRIUM: NORMAL LEFT ATRIUM: DILATED RIGHT VENTRICLE: NORMAL LEFT VENTRICLE: LEFT VENTRICULAR HYPERTROPHY TRICUSPID VALVE: NORMAL MITRAL VALVE: NORMAL PULMONIC VALVE: NORMAL AORTIC VALVE: SCLEROSIS PERICARDIAL EFFUSION: NONE AORTIC ROOT: NORMAL LEFT VENTRICULAR WALL MOTION: NORMAL. DOPPLER/COLOR FLOW: MILD-MODERATE AORTIC REGURGITATION. MILD TRICUSPID REGURGITATION. MODERATE PULMONARY HYPERTENSION, ESTIMATED RIGHT VENTRICULAR SYSTOLIC PRESSURE 50mmHg. IMPAIRED LEFT VENTRICULAR RELAXATION. NO AROTIC STENOSIS. COMMENTS: NORMAL LEFT VENTRICULAR EJECTION FRACTION. LEFT VENTRICULAR HYPERTROPHY. DILATED LEFT ATRIUM. AORTIC SCLEROSIS WITH MILD-MODERATE AORTIC REGURGITATION, NO AORTIC STENOSIS. IMPAIRED LEFT VENTRICULAR RELAXATION. MILD TRICUSPID REGURGITATION. MODERATE PULMONARY HYPERTENSION. TECHNOLOGIST: CHRISTIN TURNER
--- NOTE | 2017-08-24 12:09 | P.PN ---
Subjective Date of Service: 08/24/17 Chief Complaint: acute on chronic respiratory failure Subjective: Improving (Patient is still complaining of a little significant amount of pain which pain medications need to be resumed the scheduled doses of morphine and Dilaudid blood pressure elevated) Review of Systems General: Weakness Respiratory: Shortness of Breath Musculoskeletal: Unremarkable (Generalized pain) Physical Examination - Vital Signs Temperature: 97.3 F Blood Pressure: 170/103 Pulse: 90 Respirations: 11 Pulse Ox (%): 98 - Physical Exam General: Alert, Moderate distress HEENT: Atraumatic Neck: Supple Respiratory: Diminished Cardiovascular: No edema, Normal pulses - Studies Microbiology Data (last 24 hrs): 08/21/17 18:00 Sputum Gram Stain - Final 08/21/17 18:00 Sputum Culture & Sensitivity - Final Pseudomonas Aeruginosa Proteus Mirabilis 08/21/17 20:30 Catheterized Urine [place] Count - Final BETWEEN 10,000 & 100,000 CFU/ML 08/21/17 20:30 Catheterized Urine - Final Medications List Reviewed: Yes Assessment & Plan - Problems (Diagnosis) (1) Acute and chronic respiratory failure Current Visit: Yes Status: Acute Plan: Patient is improving hemodynamically stable blood pressure still elevated currently on nasal cannula oxygen patient can be transferred to the floor important to rule out thromboembolism continue with anticoagulation patient is stable to be transferred to the floor patient has Pseudomonas i and Proteus in the sputum patient probably has underlying diastolic dysfunction and associated moderate pulmonary hypertension no evidence of DVT patient can be transferred to the floor patient's chest x-rays clear doubt pneumonia await CT scan renal function is improving Qualifiers: Respiratory failure complication: hypoxia and hypercapnia Qualified Code(s) : J96.21 - Acute and chronic respiratory failure with hypoxia; J96.22 - Acute and chronic respiratory failure with hypercapnia (2) Pain, joint, hip, left Current Visit: Yes Status: Acute Plan: Patient has been complaining of pain in the hip joint denies any recent falls no problems with extension abduction and abduction rule order x-ray the resume her home pain medications
[2017-08-24] MEDS ORDERED: PREGABALIN 150 MG CAP PO SCH (14:00)
[2017-08-24] MEDS ORDERED: PREGABALIN 50 MG CAP PO SCH (14:00)
[2017-08-24] MEDS ORDERED: MORPHINE 15 MG IR TAB PO SCH (15:00)
[2017-08-24 16:10] VITALS: O2SAT 100
[2017-08-24 16:34] VITALS: TEMP 97.8
--- NOTE | 2017-08-24 18:42 | P.DS ---
Admission Date: 08/21/17 Discharge Date: 08/24/17 Primary Care Provider: Unknown [facility] Discharge Condition: GOOD Reason for Admission: acute on chronic respiratory failure Consultations: Pulmonary-Dr. Estrada - Problems (1) Acute and chronic respiratory failure Current Visit: Yes Status: Acute Qualifiers: Respiratory failure complication: hypoxia and hypercapnia Qualified Code(s) : J96.21 - Acute and chronic respiratory failure with hypoxia; J96.22 - Acute and chronic respiratory failure with hypercapnia (2) Atrial fibrillation Current Visit: No Status: Chronic Qualifiers: Atrial fibrillation type: chronic Qualified Code(s): I48.2 - Chronic atrial fibrillation (3) Chronic pain Current Visit: No Status: Chronic (4) Congestive heart failure (CHF) Onset Date: 10/09/15 Current Visit: No Status: Chronic Qualifiers: Heart failure type: diastolic Heart failure chronicity: unspecified Qualified Code(s): I50.30 - Unspecified diastolic (congestive) heart failure (5) Depression with anxiety Onset Date: 01/20/17 Current Visit: No Status: Chronic (6) Hypertension Onset Date: 01/20/17 Current Visit: No Status: Chronic Qualifiers: Hypertension type: essential hypertension Qualified Code(s): I10 - Essential (primary) hypertension (7) Hypomagnesemia Onset Date: 02/18/16 Current Visit: No Status: Acute (8) Hypothyroidism Current Visit: No Status: Chronic Qualifiers: Hypothyroidism type: unspecified Qualified Code(s): E03.9 - Hypothyroidism , unspecified (9) Obesity Onset Date: 02/18/16 Current Visit: No Status: Chronic Qualifiers: Obesity type: due to excess calories Obesity classification: adult class 1 (BMI 30 - 34.9) Serious obesity comorbidity presence: with serious comorbidity Body mass index: BMI 34.0-34.9 Qualified Code(s): E66.09 - Other obesity due to excess calories; Z68.34 - Body mass index (BMI) 34.0-34.9, adult (10) Obstructive sleep apnea Onset Date: 01/20/17 Current Visit: No Status: Chronic (11) COPD (chronic obstructive pulmonary disease) Current Visit: No Status: Acute Qualifiers: COPD type: COPD with acute exacerbation Qualified Code(s): J44.1 - Chronic obstructive pulmonary disease with (acute) exacerbation (12) Renal insufficiency Current Visit: Yes Status: Acute (13) Hyperglycemia Current Visit: Yes Status: Acute Brief History of Present Illness: 66 yo AALana presented to the ER with fatigue and shortness of breath. She has a complicated history of COPD, CHF, Atrial fibrillation, Hx of tracheostomy, Hypothyroidism and Obesity. She presented with acute on chronic respiratory failure. She required ventilation. Hospital Course: During the hospitalization, she received ventilation with machine. She was seen by Pulmonary who knew her case well. Sputum cultures were obtained. She was given IV antibiotics and treatment for COPD. She was eventually weaned off the ventilator. She was found to have sputum cultures positive for Proteus and Pseudomonas. This required IV antibiotics. Due to the severity of her illness she would require Merrem for 14 days. She was accepted to go to LTAC to continue her care. This was discussed with the patient and family. Patient agreed. She is stable for discharge. She will go to LTAC for IV antibiotics. Her other medical conditions are stable. She will continue with medication for Hypothyroidism, Depression, Chronic pain and CHF/HTN. Further adjustment in medication can be done at LTAC. Vital Signs/Physical Exam: Temp Pulse Resp BP Pulse Ox 97.8 F 99 H 13 170/94 H 98 08/24/17 16:00 08/24/17 17:00 08/24/17 17:00 08/24/17 17:00 08/24/17 17:00 General: Alert, In no apparent distress, Oriented x3 HEENT: Atraumatic Neck: Supple Respiratory: Expiratory wheezes Cardiovascular: Normal pulses, Regular rate/rhythm Gastrointestinal: Normal bowel sounds, Soft and benign, Non-distended, No tenderness, No masses, No rebound, No guarding Musculoskeletal: No erythema, No tenderness, No warmth Integumentary: No tenderness/swelling, No erythema, No warmth, No cyanosis Neurological: Normal speech, Normal strength at 5/5 x4 extr, Normal tone, Normal affect Laboratory Data at Discharge: WBC 8.1 K/uL (4.3-10.9) 08/24/17 05:26 Hgb 12.3 g/dL (12.0-15.0) 08/24/17 05:26 Hct 38.5 % (36.0-45.0) 08/24/17 05:26 Plt Count 175 K/uL (152-406) 08/24/17 05:26 PT 11.0 SECONDS (9.5-12.5) 08/21/17 17:44 INR 0.93 08/21/17 17:44 APTT 23.3 SECONDS (24.3-36.9) L 08/21/17 17:44 Sodium 138 mEq/L (135-145) 08/24/17 05:26 Potassium 4.1 mEq/L (3.6-5.0) 08/24/17 05:26 BUN 34 mg/dL (6-20) H 08/24/17 05:26 Creatinine 1.15 mg/dL (0.44-1.00) H 08/24/17 05:26 Glucose 272 mg/dL (65-120) H 08/24/17 05:26 Magnesium 1.7 mg/dL (1.8-2.5) L 08/24/17 05:26 Total Bilirubin 0.6 mg/dL (0.3-1.2) 08/22/17 05:09 AST 26 IU/L (10-42) 08/22/17 05:09 ALT 13 IU/L (10-60) 08/22/17 05:09 Alkaline Phosphatase 71 IU/L (42-121) 08/22/17 05:09 B-Natriuretic Peptide 160 pg/ml (<=100) H 08/21/17 17:44 Home Medications: Amlodipine [Norvasc*] 10 mg PO DAILY 10/08/15 Metformin HCl [Glucophage] 1,000 mg PO BID 10/08/15 Furosemide 40 mg PO DAILY 02/18/16 Levothyroxine [Synthroid*] 112 mcg PO [id number] 02/18/16 Sertraline [Zoloft*] 2 tab PO DAILY 02/18/16 Spironolactone [Aldactone*] 25 mg PO DAILY 02/18/16 Metoprolol Tartrate 100 mg PO BID 08/22/17 Morphine Ir [MSIR (Morphine Sulfate IR)] 30 mg PO Q6H 08/22/17 Pregabalin [Lyrica] 200 mg PO TID 08/23/17 Hydromorphone [Dilaudid] 8 mg PO BEDTIME 08/24/17 Patient Discharge Instructions: 1. Patient will be sent to LTAC for IV antibiotics-Merrem for 14 days. 2. Continue with current medications. Diet: AHA Activity: Fall precautions Time spent managing pt's care (in minutes): 55
[2017-08-24 18:43] VITALS: BP 165/89
== END 2017-08-24 18:55 | DRG 208 ==
LOC: ER 16:45 → ERHOLD 23:04 → 3RD-ICU 08-22 02:15
PROVIDERS: ADMIT Internal Medicine; ATTEND Family Medicine
PROC: 5A1935Z Respiratory Ventilation, Less than 24 Consecutive Hours (ICD-10-PCS; principal; 2017-08-21)
PROC: 0B21XFZ Change Tracheostomy Device in Trachea, External Approach (ICD-10-PCS; 2017-08-21)
DX: J96.21 Acute and chronic respiratory failure with hypoxia (principal); J15.6 Pneumonia due to other Gram-negative bacteria; J15.1 Pneumonia due to Pseudomonas; G93.40 Encephalopathy, unspecified; I50.32 Chronic diastolic (congestive) heart failure; J44.1 Chronic obstructive pulmonary disease with (acute) exacerbation; J44.0 Chronic obstructive pulmonary disease with (acute) lower respiratory infection; J96.22 Acute and chronic respiratory failure with hypercapnia; I48.2 Chronic atrial fibrillation; G89.29 Other chronic pain; I11.0 Hypertensive heart disease with heart failure; F41.8 Other specified anxiety disorders; E83.42 Hypomagnesemia; E03.9 Hypothyroidism, unspecified; E66.09 Other obesity due to excess calories; Z68.34 Body mass index [BMI] 34.0-34.9, adult; G47.33 Obstructive sleep apnea (adult) (pediatric); N28.9 Disorder of kidney and ureter, unspecified; Z93.0 Tracheostomy status; Z99.81 Dependence on supplemental oxygen; E11.65 Type 2 diabetes mellitus with hyperglycemia; Z91.041 Radiographic dye allergy status; Z88.8 Allergy status to other drugs, medicaments and biological substances; Z91.048 Other nonmedicinal substance allergy status; Z79.84 Long term (current) use of oral hypoglycemic drugs; Z98.84 Bariatric surgery status; M25.552 Pain in left hip
CPT/HCPCS: 36415; 51702; 70450; 71045; 80048; 80053; 80076; 81003; 82805; 82962; 83605; 83735; 83880; 84145; 84484; 85025; 85027; 85610; 85730; 87040; 87070; 87077; 87086; 87088; 87186; 87205; 93005; 93306; 93970; 94002; 94003; 94760; 96365; 96375; 99285; J0360; J0456; J0696; J1940; J2543; J2920; J3010; J3370; J3475; J7030; J7512; J7605

== ENCOUNTER 2017-09-27 10:58 | Observation (INO) | payer OTHER ==
[2017-09-27] MEDS ORDERED: IPRATROPIUM BROM 0.5MG/2.5ML ONE (11:16)
[2017-09-27] MEDS ORDERED: ALBUTEROL 2.5 MG/3 ML NEB SOL ONE (11:16)
[2017-09-27] MEDS ORDERED: VANCOMYCIN 1 GM/250 ML BAG ONE (11:26)
[2017-09-27] MEDS ORDERED: CEFEPIME 2 GM/200 ML BAG IV ONE (11:26)
[2017-09-27] MEDS ORDERED: METHYLPREDNISOLONE 125 MG INJ ONE (11:26)
[2017-09-27] MEDS ORDERED: NA CHLORIDE 0.9% 1,000 ML ONE (11:26)
[2017-09-27 11:45] LABS: Absolute Lymphocytes (CBC) 0.9 K/uL (0.7-4.9); Absolute Neutrophil 6.7 K/uL (1.8-8.0); Basophils % 0.7 % (0-1.3); Eosinophils % 1.4 % (0-4.4); Hematocrit 34.1 % (36.0-45.0); Lymphocytes % 10.1 % (15.3-44.8); MCH 28.6 pg (27.0-35.0); MCV 90.8 fL (80-100); MPV 11.4 fL (7.6-11.3); Monocytes % 11.7 % (3.3-12.3); RBC Red Blood Cell Count 3.76 M/uL (3.86-4.86)
[2017-09-27 11:54] LABS: Albumin 3.9 g/dL (3.4-5.0); Bilirubin Direct 0.2 mg/dL (0-0.2); Bilirubin Total 0.5 mg/dL (0.2-1.0); Magnesium 2.4 mg/dL (1.8-2.4); Potassium 4.3 mmol/L (3.5-5.1); Protein, Total 8.2 g/dL (6.4-8.2)
[2017-09-27 11:59] LABS: Protime INR 1.01
--- NOTE | 2017-09-27 12:57 | EDPHYS ---
Physician Documentation [facility] Name: Avelina Chino Age: 66 yrs Sex: Female : 1950 Arrival Date: 09/27/2017 Time: 11:00 Bed 7 Private MD: ED Physician Dax Gallego HPI: 09/27 11:14 This 66 yrs old Black Female presents to ER via Unassigned with complaints of dyspnea , priyanka trach complications. 11:14 The patient has shortness of breath at rest, with light activity. Onset: The priyanka symptoms/episode began/occurred 1 day(s) ago. The patient's shortness of breath is aggravated by coughing, is alleviated by rest, sitting up, application of supplemental oxygen. The patient or guardian reports cough, described as mild, described as moderate, difficulty breathing. Modifying factors: The symptoms are alleviated by elevating head, remaining still, the symptoms are aggravated by lying flat, talking. Severity of symptoms: At their worst the symptoms were moderate in the emergency department the symptoms are unchanged. Historical: - Allergies: 13:05 Lisinopril; ae1 13:05 Iodine; ae1 - Home Meds: 14:33 amlodipine 5 mg tab 1 tab once daily [Active]; aspirin 81 mg Oral TbEC 1 tab once daily ae1 [Active]; Furosemide Oral [Active]; levothyroxine 112 mcg tab 1 tab once daily [Active]; Metoprolol Tartrate Oral once daily [Active]; meloxicam 7.5 mg Oral tab 1 tab once daily [Active]; Metformin Oral once daily [Active]; metoprolol tartrate 100 mg Oral tab 1 tab 2 times per day [Active]; Vitamin D Oral [Active]; - PMHx: 13:05 Atrial Fib; CHF; COPD; Diabetes - NIDDM; Hyperlipidemia; Hypertension; Pneumonia; Renal ae1 Disease; - PSHx: 13:05 tracheostomy; ae1 - Immunization history:: Adult Immunizations up to date. - Family history:: not pertinent. - Social history:: Smoking status: Patient/guardian denies using tobacco. - Ebola Screening: : Patient denies exposure to infectious person Patient denies travel to an Ebola-affected area in the 21 days before illness onset No symptoms or risks identified at this time. ROS: 11:14 Eyes: Negative for injury, pain, redness, and discharge, ENT: Negative for injury, priyanka pain, and discharge, Neck: Negative for injury, pain, and swelling, Cardiovascular: Negative for chest pain, palpitations, and edema, Abdomen/GI: Negative for abdominal pain, nausea, vomiting, diarrhea, and constipation, Back: Negative for injury and pain, : Negative for injury, bleeding, discharge, and swelling, Skin: Negative for injury, rash, and discoloration, Neuro: Negative for headache, weakness, numbness, tingling, and seizure. 11:14 Constitutional: Positive for chills, fever. 11:14 Cardiovascular: Positive for palpitations. 11:14 Respiratory: Positive for cough, "sounds productive", dyspnea on exertion, shortness of breath, at rest. wheezing, inspiratory, expiratory. 11:14 Abdomen/GI: Positive for 11:14 MS/extremity: Positive for decreased range of motion, erythema, swelling, warmth. Exam: 11:14 Head/Face: Normocephalic, atraumatic. Eyes: Pupils equal round and reactive to light, priyanka extra-ocular motions intact. Lids and lashes normal. Conjunctiva and sclera are non-icteric and not injected. Cornea within normal limits. Periorbital areas with no swelling, redness, or edema. ENT: Nares patent. No nasal discharge, no septal abnormalities noted. Tympanic membranes are normal and external auditory canals are clear. Oropharynx with no redness, swelling, or masses, exudates, or evidence of obstruction, uvula midline. Mucous membranes moist. Neck: Trachea midline, no thyromegaly or masses palpated, and no cervical lymphadenopathy. Supple, full range of motion without nuchal rigidity, or vertebral point tenderness. No Meningismus. Chest/axilla: Normal chest wall appearance and motion. Nontender with no deformity. No lesions are appreciated. Abdomen/GI: Soft, non-tender, with normal bowel sounds. No distension or tympany. No guarding or rebound. No evidence of tenderness throughout. Back: No spinal tenderness. No costovertebral tenderness. Full range of motion. Skin: Warm, dry with normal turgor. Normal color with no rashes, no lesions, and no evidence of cellulitis. Neuro: Awake and alert, GCS 15, oriented to person, place, time, and situation. Cranial nerves II-XII grossly intact. Motor strength 5/5 in all extremities. Sensory grossly intact. Cerebellar exam normal. Normal gait. Psych: Awake, alert, with orientation to person, place and time. Behavior, mood, and affect are within normal limits. 11:14 Cardiovascular: Rate: tachycardic, Rhythm: regular, JVD: is not appreciated. 11:14 Respiratory: mild respiratory distress is noted, Respirations: labored breathing, that is mild, Breath sounds: decreased breath sounds, rhonchi, + upper airway congestion. wheezing: expiratory 11:14 Musculoskeletal/extremity: ROM: limited active range of motion, limited passive range of motion, Circulation is intact in all extremities. Sensation intact. Compartment Syndrome exam of affected extremity: is normal. DVT Exam: no pain, negative Homans' sign noted on exam, no appreciated bluish discoloration, swelling, tenderness, erythema, that is mild, increased warmth, that is mild, of the right leg, of the left leg. Vital Signs: 11:05 Pulse Ox 84% on R/A; ae1 11:16 Pulse 94; Temp 99.3(A); Pulse Ox 95% on Nebulizer Mask; ae1 12:02 Pulse 92; Resp 25; Pulse Ox 99% ; ae1 12:34 Weight 95.25 kg (R); ae1 12:34 BP 122 / 67; ae1 13:10 BP 125 / 70; Pulse 84; Resp 23; Pulse Ox 96% 40% ; ae1 14:37 BP 146 / 85; Pulse 80; Resp 19; Pulse Ox 98% 40% ; ae1 11:16 applied via tracheostomy ae1 12:02 Flow by oxygen via trach ae1 13:10 40% O2 flow by via trach ae1 14:37 flow by via trach ae1 MDM: 11:00 Patient medically screened. [facility] 11:19 Data reviewed: vital signs, nurses notes, lab test result(s), EKG, radiologic studies. [facility] 09/27 11:13 Order name: Basic Metabolic Panel; Complete Time: 12:00 [facility] 09/27 11:13 Order name: CBC with Diff; Complete Time: 12:00 [facility] 09/27 11:13 Order name: Ckmb; Complete Time: 12:00 [facility] 09/27 11:13 Order name: CPK; Complete Time: 12:00 [facility] 09/27 11:13 Order name: LFT's; Complete Time: 12:00 [facility] 09/27 11:13 Order name: Magnesium; Complete Time: 12:00 [facility] 09/27 11:13 Order name: NT PRO-BNP; Complete Time: 12:00 [facility] 09/27 11:13 Order name: PT-INR; Complete Time: 12:36 [facility] 09/27 11:13 Order name: Ptt, Activated; Complete Time: 12:36 [facility] 09/27 11:13 Order name: Troponin (emerg Dept Use Only); Complete Time: 12:00 [facility] 09/27 11:13 Order name: Lactate; Complete Time: 12:00 [facility] 09/27 11:13 Order name: Blood Culture Adult (2) [facility] 09/27 11:13 Order name: Sputum Culture [facility] 09/27 11:19 Order name: Urine Culture [facility] 09/27 11:13 Order name: XRAY Chest (1 view); Complete Time: 18:13 [facility] 09/27 11:13 Order name: EKG; Complete Time: 11:13 [facility] 09/27 11:13 Order name: Cardiac monitoring; Complete Time: 11:16 [facility] 09/27 11:13 Order name: EKG - Nurse/Tech; Complete Time: 12:01 [facility] 09/27 11:13 Order name: IV Saline Lock; Complete Time: 12:01 [facility] 09/27 11:13 Order name: Labs collected and sent; Complete Time: 12:01 [facility] 09/27 13:02 Order name: CONS Physician Consult [facility] 09/27 13:07 Order name: Urine Dipstick--Ancillary (enter results); Complete Time: 18:13 09/27 14:34 Order name: ABG Arterial Blood Gas; Complete Time: 18:13 [facility] 09/27 11:13 Order name: O2 Per Protocol; Complete Time: 11:16 [facility] 09/27 11:13 Order name: O2 Sat Monitoring; Complete Time: 11:16 [facility] 09/27 11:13 Order name: Urine Dipstick-Ancillary (obtain specimen); Complete Time: 13:09 [facility] 09/27 11:13 Order name: Venegas; Complete Time: 13:05 [facility] Administered Medications: 11:10 Drug: Albuterol - atroVENT (3:1) (2.5 mg - 0.5 mg) 3 ml Route: Nebulizer; ae1 13:12 Follow up: Response: Wheezing diminished; Other; Respiratory rate less labored ae1 11:25 Drug: SOLU-Medrol 125 mg Route: IVP; Site: right antecubital; ae1 13:24 Follow up: Response: No adverse reaction ae1 12:34 Drug: Cefepime 2 grams Route: IVPB; Rate: 200 ml/hr; Infused Over: 30 mins; Site: right ae1 antecubital; 13:12 Follow up: IV Status: Completed infusion ae1 12:38 Not Given (Duplicate Order): NS 0.9% 1000 ml IV at 125 ml/hr continuous priyanka 13:06 Drug: NS 0.9% 1000 ml Route: IV; Rate: 75 ml/hr; Site: right antecubital; ae1 13:15 Drug: Lasix 40 mg Route: IVP; Site: right antecubital; ae1 14:40 Follow up: Response: Other; 350 mls urine output since lasiz administration ae1 13:24 Drug: vancoMYCIN 1 grams Route: IVPB; Infused Over: 2 hrs; Site: right antecubital; ae1 Point of Care Testing: Blood Glucose: 18:01 Blood Glucose: 168 mg/dL; ae1 Ranges: Critical Glucose Levels:Adult <50 mg/dl or >400 mg/dl <40 mg/dl or >180 mg/dl Disposition: 09/27/17 12:56 Hospitalization ordered by Mike Estrada for Inpatient Admission. Preliminary diagnosis are Dyspnea, Hypoxemia, Unspecified combined systolic (congestive) and diastolic (congestive) heart failure, Pneumonia due to other specified bacteria, Chronic obstructive pulmonary disease with (acute) exacerbation, Tracheostomy status. - Bed requested for Telemetry/MedSurg (Inpatient). - Status is Inpatient Admission. aa5 - Condition is Fair. - Problem is new. - Symptoms have improved. UTI on Admission? No Signatures: Dispatcher [employer] Toyin Kolb RN RN dw Anderson, Corey, MD MD cha Calderon, Audri RN RN aa5 Tamir Ramirez RN RN ae1 Corrections: (The following items were deleted from the chart) 15:14 12:56 Hospitalization Ordered by Mike Estrada MD for Inpatient Admission. dw Preliminary diagnosis is Dyspnea; Hypoxemia; Unspecified combined systolic (congestive) and diastolic (congestive) heart failure; Pneumonia due to other specified bacteria; Chronic obstructive pulmonary disease with (acute) exacerbation; Tracheostomy status. Bed requested for Telemetry/MedSurg (Inpatient). Status is Inpatient Admission. Condition is Fair. Problem is new. Symptoms have improved. UTI on Admission? No. priyanka 18:23 15:14 09/27/2017 12:56 Hospitalization Ordered by Mike Estrada MD for Inpatient aa5 Admission. Preliminary diagnosis is Dyspnea; Hypoxemia; Unspecified combined systolic (congestive) and diastolic (congestive) heart failure; Pneumonia due to other specified bacteria; Chronic obstructive pulmonary disease with (acute) exacerbation; Tracheostomy status. Bed requested for Telemetry/MedSurg (Inpatient). Status is Inpatient Admission. Condition is Fair. Problem is new. Symptoms have improved. UTI on Admission? No. dw
--- NOTE | 2017-09-27 12:57 | ER ---
Nurse's Notes [facility] Name: Avelina Chino Age: 66 yrs Sex: Female : 1950 Arrival Date: 09/27/2017 Time: 11:00 Bed 7 Private MD: Diagnosis: Dyspnea;Hypoxemia;Unspecified combined systolic (congestive) and diastolic (congestive) heart failure;Pneumonia due to other specified bacteria;Chronic obstructive pulmonary disease with (acute) exacerbation;Tracheostomy status Presentation: 09/27 11:18 Presenting complaint: EMS states: EMS states patient has increased SOB starting this ae1 morning and gradually increasing. Patient has tracheostomy. Transition of care: patient was not received from another setting of care. Onset of symptoms was September 27, 2017 at 07:00. Care prior to arrival: Oxygen applied via no-rebreather. 11:18 Acuity: SOL 2 ae1 11:18 Method Of Arrival: EMS: [facility] ae1 14:31 Risk Assessment: Do you want to hurt yourself or someone else? Patient reports no ae1 desire to harm self or others. Initial Sepsis Screen: Does the patient meet any 2 criteria? RR > 20 per min. Does the patient have a suspected source of infection? No. Patient's initial sepsis screen is negative. Triage Assessment: 14:20 General: Appears. ae1 Historical: - Allergies: 13:05 Lisinopril; ae1 13:05 Iodine; ae1 - Home Meds: 14:33 amlodipine 5 mg tab 1 tab once daily [Active]; aspirin 81 mg Oral TbEC 1 tab once daily ae1 [Active]; Furosemide Oral [Active]; levothyroxine 112 mcg tab 1 tab once daily [Active]; Metoprolol Tartrate Oral once daily [Active]; meloxicam 7.5 mg Oral tab 1 tab once daily [Active]; Metformin Oral once daily [Active]; metoprolol tartrate 100 mg Oral tab 1 tab 2 times per day [Active]; Vitamin D Oral [Active]; - PMHx: 13:05 Atrial Fib; CHF; COPD; Diabetes - NIDDM; Hyperlipidemia; Hypertension; Pneumonia; Renal ae1 Disease; - PSHx: 13:05 tracheostomy; ae1 - Immunization history:: Adult Immunizations up to date. - Family history:: not pertinent. - Social history:: Smoking status: Patient/guardian denies using tobacco. - Ebola Screening: : Patient denies exposure to infectious person Patient denies travel to an Ebola-affected area in the 21 days before illness onset No symptoms or risks identified at this time. Screenin:07 Abuse screen: Denies threats or abuse. Nutritional screening: No deficits noted. ae1 Tuberculosis screening: No symptoms or risk factors identified. Fall Risk No secondary diagnosis (0 pts). IV access (20 points). Ambulatory Aid- Crutches/Cane/Walker (15 pts). Gait- Weak (10 pts.). Mental Status-. Assessment: 11:00 General: Appears distressed, uncomfortable, obese, unkempt, Behavior is cooperative, ae1 anxious, restless. Pain: Denies pain. Neuro: Level of Consciousness is awake, Oriented to person, place, situation. Respiratory: Airway Respiratory effort is labored, with retractions, shallow, Respiratory pattern is regular, tachypnea Sputum is thick, brown Tracheostomy is in place, significant amount of dried brown secretions around ostomy, ostomy appears to be partially obstructed. GI: Abdomen is round obese, skin in this area is excessively moist. : Urine is 200 mls yellow urine. EENT: Oral mucosa is dry. Poor dentition noted. Derm: Skin is normal. Musculoskeletal: Swelling present in right leg and left leg. 12:00 Reassessment: Patient appears in no apparent distress at this time. Respiratory: Airway ae1 is patent Appears less labored. 14:12 Reassessment: Patient appears in no apparent distress at this time. Patient states ae1 feeling better. Neuro: Level of Consciousness is obeys commands, drowsy.. Oriented to person, place, situation. Cardiovascular: Heart tones S1 S2 present. Respiratory: Airway is patent via trache Respiratory effort is even, unlabored, Respiratory pattern is regular, symmetrical, Breath sounds are diminished bilaterally. Vital Signs: 11:05 Pulse Ox 84% on R/A; ae1 11:16 Pulse 94; Temp 99.3(A); Pulse Ox 95% on Nebulizer Mask; ae1 12:02 Pulse 92; Resp 25; Pulse Ox 99% ; ae1 12:34 Weight 95.25 kg (R); ae1 12:34 BP 122 / 67; ae1 13:10 BP 125 / 70; Pulse 84; Resp 23; Pulse Ox 96% 40% ; ae1 14:37 BP 146 / 85; Pulse 80; Resp 19; Pulse Ox 98% 40% ; ae1 11:16 applied via tracheostomy ae1 12:02 Flow by oxygen via trach ae1 13:10 40% O2 flow by via trach ae1 14:37 flow by via trach ae1 ED Course: 11:00 Patient arrived in ED. iw 11:00 Dax Gallego MD is Attending Physician. priyanka 11:00 Inserted saline lock: 20 gauge in right antecubital area, using aseptic technique. ae1 Blood collected. 11:00 Call light in reach. Side rails up X2. night monitor on. Pulse ox on. NIBP on. light ae1 sheet provided. 11:00 Arm band placed on right wrist. EKG completed in triage. Results shown to MD. ae1 11:05 Tamir Ramirez, KALYN is Primary Nurse. ae1 11:20 Triage completed. ae1 12:13 XRAY Chest (1 view) In Process Unspecified. EDMS 12:54 Mike Estrada MD is Hospitalizing Provider. priyanka 13:06 Venegas cath inserted, using sterile technique, 16 Fr., by tx, balloon inflated, to ae1 gravity drainage, urine specimen collected. other 300 mls yellow urine. 18:15 No provider procedures requiring assistance completed. Patient admitted, IV remains in aa5 place. Administered Medications: 11:10 Drug: Albuterol - atroVENT (3:1) (2.5 mg - 0.5 mg) 3 ml Route: Nebulizer; ae1 13:12 Follow up: Response: Wheezing diminished; Other; Respiratory rate less labored ae1 11:25 Drug: SOLU-Medrol 125 mg Route: IVP; Site: right antecubital; ae1 13:24 Follow up: Response: No adverse reaction ae1 12:34 Drug: Cefepime 2 grams Route: IVPB; Rate: 200 ml/hr; Infused Over: 30 mins; Site: right ae1 antecubital; 13:12 Follow up: IV Status: Completed infusion ae1 12:38 Not Given (Duplicate Order): NS 0.9% 1000 ml IV at 125 ml/hr continuous priyanka 13:06 Drug: NS 0.9% 1000 ml Route: IV; Rate: 75 ml/hr; Site: right antecubital; ae1 13:15 Drug: Lasix 40 mg Route: IVP; Site: right antecubital; ae1 14:40 Follow up: Response: Other; 350 mls urine output since lasiz administration ae1 13:24 Drug: vancoMYCIN 1 grams Route: IVPB; Infused Over: 2 hrs; Site: right antecubital; ae1 Point of Care Testing: Blood Glucose: 18:01 Blood Glucose: 168 mg/dL; ae1 Ranges: Intake: Outcome: 12:56 Decision to Hospitalize by Provider. priyanka 18:15 Admitted to Tele accompanied by tech, via stretcher, with oxygen, with chart, Report aa5 called to KALYN Pena 18:15 Condition: stable 18:15 Instructed on the need for admit, Demonstrated understanding of instructions. 18:23 Patient left the ED. aa5 Signatures: Dispatcher [employer] Dax Shahid MD MD cha Williams, Irene, RN RN iw Calderon, Audri, RN RN aa5 Tamir Ramirez RN RN ae1
[2017-09-27] MEDS ORDERED: D50W 25 GM/50 ML SYRINGE IV PRN (13:02)
[2017-09-27] MEDS ORDERED: GLUCAGON 1 MG/VIAL IM PRN (13:02)
[2017-09-27] MEDS: ARFORMOTEROL TARTRATE 15 MCG/2 ML VIAL.NEB NEB SCH ×2 (13:10→20:58)
[2017-09-27 13:17] LABS: Urine Blood TRACE (NEG); Urine Glucose NEGATIVE (NEG); Urine Protein 2+ (NEG); Urine Specific Gravity 1.015 (1.005-1.030); Urine pH 6.5 (5.0-7.0)
[2017-09-27] MEDS ORDERED: FUROSEMIDE 40 MG/4 ML VIAL ONE (13:17)
[2017-09-27] MEDS ORDERED: CEFEPIME 1 GM/VIAL IV SCH (13:36)
[2017-09-27] MEDS: IPRATROPIUM BROM 0.5MG/2.5ML NEB SCH ×2 (14:00→20:58)
[2017-09-27 14:33] LABS: Arterial Blood Carboxyhemoglob 2.1 % (0-1.5); Blood Gas Oxyhemoglobin 87.6 % (94-97); Blood O2 Saturation 90.6 % (92-98.5)
--- NOTE | 2017-09-27 14:33 | RAD REPORT ---
EXAM DESCRIPTION: RAD - Chest Single View - 09/27/2017 12:13 pm CLINICAL HISTORY: Cough, COPD, shortness of breath, trach tube COMPARISON: August 23 TECHNIQUE: AP portable chest image was obtained 1158 hours . FINDINGS: Lung volumes are low. Portable technique and body habitus further contribute to exam limit ations. Hazy opacification in the lower left lung field is seen. Assessment is limited but findings are jami rning for a left base pneumonia. Patient has overall increase in vasculature compared to the prior [facility] along with increased heart size. Trachea is midline. Trach tube appears well positioned. No pneum othorax or large pleural effusion. No gross bony abnormality seen. No acute aortic findings suspected . IMPRESSION: Limited exam suspicious for left lung base pneumonia. Patient also has underlying failure and volume overload findings.
--- NOTE | 2017-09-27 14:50 | P.HP ---
Certification for Inpatient Patient admitted to: Observation With expected LOS: <2 Midnights Practitioner: I am a practitioner with admitting privileges, knowledge of patient current condition, hospital course, and medical plan of care. Services: Services provided to patient in accordance with Admission requirements found in Title 42 Section 412.3 of the Code of Federal Regulations Patient History Date of Service: 09/27/17 Reason for admission: Shortness of breath History of Present Illness: Patient is 66 years of age well known to me with a history of COPD status post trach has been having problem breathing for the past day coughing up some takes sputum after the take mucus was suctioned out patient is doing better resting comfortably sleeping does not want to communicate saturation satisfactory Allergies lisinopril Allergy (Mild, Verified 08/12/15 06:53) Rash Adhesives Allergy (Uncoded 11/12/16 14:46) Unknown Home Medications: Amlodipine [Norvasc*] 10 mg PO DAILY 10/08/15 Metformin HCl [Glucophage] 1,000 mg PO BID 10/08/15 Furosemide 40 mg PO DAILY 02/18/16 Levothyroxine [Synthroid*] 112 mcg PO [id number] 02/18/16 Sertraline [Zoloft*] 2 tab PO DAILY 02/18/16 Spironolactone [Aldactone*] 25 mg PO DAILY 02/18/16 Metoprolol Tartrate 100 mg PO BID 08/22/17 Morphine Ir [MSIR (Morphine Sulfate IR)] 30 mg PO Q6H 08/22/17 Pregabalin [Lyrica] 200 mg PO TID 08/23/17 Hydromorphone [Dilaudid] 8 mg PO BEDTIME 08/24/17 - Past Medical/Surgical History Diabetic: Yes -: Hypertension -: Chronic Obstructive Pulmonary Disease -: Depression with anxiety -: Morbid Obesity -: Hemorrhoids -: Atrial fibrillation -: Obstructive Sleep Apnea, arthritis -: Chronic Respiratory Failure with Tracheostomy -: Hepatitis -: MRSA present.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 - Family History Father -: Hypertension, Diabetes Mother -: Hypertension, Lung disease, GI disease, Diabetes, Stroke - Social History Alcohol use: No CD- Drugs: No Caffeine use: Yes Review of Systems is unable to be obtained Physical Examination - Vital Signs Temperature: 99.3 F Blood Pressure: 122/67 Pulse: 94 Respirations: 14 Pulse Ox (%): 84 - Physical Exam General: Other (Drowsy but arousable with deep stimulation) HEENT: Atraumatic Neck: Supple Respiratory: Clear to auscultation bilaterally, Diminished Cardiovascular: No edema, Normal S1 S2 Gastrointestinal: Normal bowel sounds, Soft and benign Musculoskeletal: No clubbing, No swelling - Studies Laboratory Data (last 24 hrs) 09/27/17 11:13: PT 11.9, INR 1.01, APTT 30.2 09/27/17 11:13: WBC 8.8, Hgb 10.7 L, Hct 34.1 L, Plt Count 192 09/27/17 11:13: Sodium 146 H, Potassium 4.3, BUN 56 H, Creatinine 1.50 H, Glucose 133 H, Magnesium 2.4, Total Bilirubin 0.5, AST 34, ALT 24, Alkaline Phosphatase 130 H Assessment and Plan - Problems (Diagnosis) (1) Respiratory distress Current Visit: Yes Status: Acute Plan: Patient is 66 years of age admitted with respiratory distress she is a tracheostomy done thick sputum was suctioned out and she did well after that patient's renal function may be slightly worse of starter known some IV fluids patient is on diuretics at home patient has baseline hypoxic hypercapnic respiratory failure mild anemia Cultures have been sent start on IV fluids reduced doses of diuretics continue with bronchodilators probable discharge tomorrow patient's chest x-rays clear The recent echocardiogram done in August 2017 showed diastolic dysfunction. Use Lasix daily spironolactone p.r.n. patient id poly benefit from Brovana or Perforomist at home via nebulizer and ipratropium p.r.n. cultures are pending - Advance Directives Does patient have a Living Will: No Does patient have a Durable POA for Healthcare: No
[2017-09-27] MEDS: INSULIN -REGULAR HUMAN 50 UNIT/0.5 ML ML SQ SCH ×2 (16:30→21:57)
[2017-09-27] MEDS: D5 0.45 NS 1,000 ML IV SCH (19:17)
[2017-09-27] MEDS: METHYLPREDNISOLONE 40 MG INJ IV SCH (19:18)
[2017-09-27 20:17] VITALS: BMI 32.7
[2017-09-27] MEDS: CEFEPIME/SWI 1gm 1 GM/10 ML SYR IV SCH (21:57)
[2017-09-28] MEDS: METHYLPREDNISOLONE 40 MG INJ IV SCH ×3 (01:30→17:25)
[2017-09-28] MEDS: IPRATROPIUM BROM 0.5MG/2.5ML NEB SCH ×4 (01:32→19:27)
[2017-09-28] MEDS: D5 0.45 NS 1,000 ML IV SCH ×2 (05:31→17:25)
[2017-09-28] MEDS: LEVOTHYROXINE SOD 0.112 MG TAB PO SCH (05:32)
--- NOTE | 2017-09-28 07:41 | EKG ---
Test Date: 2017-09-27 Test Time: 11:48:22 [employer] Mechanic: EDI MEASUREMENT RESULTS: Intervals: Rate: 88 [place]: 176 QRSD: 100 QT: 396 QTc: 479 [place]: P: 39 [place]: 176 QRS: -9 T: 59 INTERPRETIVE STATEMENTS: Normal sinus rhythm Normal ECG Compared to ECG 08/21/2017 17:16:34 No significant changes Electronically Signed On 09-28-17 07:40:16 CDT by Brady Allen
[2017-09-28] MEDS: ARFORMOTEROL TARTRATE 15 MCG/2 ML VIAL.NEB NEB SCH ×2 (07:53→19:27)
[2017-09-28] MEDS: INSULIN -REGULAR HUMAN 50 UNIT/0.5 ML ML SQ SCH ×4 (08:49→20:22)
[2017-09-28] MEDS: CEFEPIME/SWI 1gm 1 GM/10 ML SYR IV SCH ×2 (08:49→20:17)
[2017-09-28] MEDS: AMLODIPINE 10 MG TAB PO SCH (08:50)
[2017-09-28] MEDS: FUROSEMIDE 40 MG TABLET PO SCH (08:50)
[2017-09-28] MEDS: SPIRONOLACTONE 25 MG TABLET PO SCH (08:50)
[2017-09-28] MEDS: SERTRALINE HCL 100 MG TAB PO SCH (08:50)
--- NOTE | 2017-09-28 14:11 | PN ---
Date of Progress Note: 09/28/2017 Subjective: The patient seen and examined, chart reviewed, and case discussed with RN. The patient denies any significant shortness of breath. The patient is on oxygen 29/09. Review of Systems: Negative except as above. Medications: List reviewed. Objective: Vital Signs: Temperature 97.9, heart rate 80, blood pressure 154/67 , respirations 18, O2 97% on 4 L via nasal cannula. General: Awake, alert, oriented x3, not in any acute distress. Elderly female , obese, BMI 32. CV: S1, S2. No murmurs. Peripheral pulses present. Respiratory: Diminished breath sounds at the bases. Otherwise, no wheezing or crackles Gastrointestinal: Abdomen is soft, nontender, nondistended. Positive bowel sounds. Extremities: No clubbing, cyanosis. Trace edema. Neurologic: Nonfocal. Laboratory Data: Sodium 140, potassium 4, chloride 109, CO2 31, BUN 53, creatinine 1.3, glucose 262, and calcium 8.4. Sputum culture showing gram- negative rods. Assessment: A 66-year-old female with; 1. Acute respiratory distress, likely secondary to mucus plug. The patient has suctioned out. Improved significantly. We will continue 4 L via trach collar. 2. Chronic obstructive pulmonary disease, acute exacerbation. Steroids. IV cefepime. Continue nebulizers. 3. Essential hypertension. Resume home medications as appropriate. 4. Depression with anxiety. 5. Morbid obesity. 6. History of paroxysmal atrial fibrillation, currently in sinus rhythm. 7. Obstructive sleep apnea. 8. Generalized osteoarthritis. 9. History of hepatitis. Plan: We will continue with current treatment. Sputum cultures are growing gram-negative rods. Continue antibiotics. Follow up on ID and sensitivity. /NICCI Voice ID: [id number] Report ID: [id number] PAOLA
[2017-09-28] MEDS ORDERED: MORPHINE *EXTENDED RELEASE* 15 MG TAB PO PRN (14:27)
[2017-09-29] MEDS: METHYLPREDNISOLONE 40 MG INJ IV SCH ×2 (00:07→09:00)
[2017-09-29] MEDS: MORPHINE 15 MG IR TAB PO PRN ×3 (01:06→12:15)
[2017-09-29] MEDS: IPRATROPIUM BROM 0.5MG/2.5ML NEB SCH ×3 (02:36→13:48)
[2017-09-29 05:24] LABS: Absolute Lymphocytes (CBC) 0.3 K/uL (0.7-4.9); Absolute Monocytes 0.4 K/uL (0.1-1.3); Absolute Neutrophil 8.5 K/uL (1.8-8.0); Basophils % 0.2 % (0-1.3); Hematocrit 30.8 % (36.0-45.0); Lymphocytes % 3.5 % (15.3-44.8); MCV 90.4 fL (80-100); MPV 11.8 fL (7.6-11.3); Monocytes % 4.8 % (3.3-12.3)
[2017-09-29 05:46] LABS: Albumin 2.8 g/dL (3.4-5.0); Bilirubin Total 0.4 mg/dL (0.2-1.0); Potassium 4.1 mmol/L (3.5-5.1); Protein, Total 6.6 g/dL (6.4-8.2)
[2017-09-29] MEDS: D5 0.45 NS 1,000 ML IV SCH (06:00)
[2017-09-29 06:05] LABS: Urine White Blood Cell Casts OK
[2017-09-29 06:06] LABS: Blood Morphology Comment NOT SEEN (NOT SEEN); Platelet Estimate ADEQ
[2017-09-29] MEDS: LEVOTHYROXINE SOD 0.112 MG TAB PO SCH (06:37)
[2017-09-29] MEDS: INSULIN -REGULAR HUMAN 50 UNIT/0.5 ML ML SQ SCH ×3 (07:30→16:30)
[2017-09-29] MEDS: ARFORMOTEROL TARTRATE 15 MCG/2 ML VIAL.NEB NEB SCH (08:19)
[2017-09-29 08:46] VITALS: O2SAT 97
[2017-09-29] MEDS: SPIRONOLACTONE 25 MG TABLET PO SCH (08:59)
[2017-09-29] MEDS: FUROSEMIDE 40 MG TABLET PO SCH (08:59)
[2017-09-29] MEDS: AMLODIPINE 10 MG TAB PO SCH (09:00)
[2017-09-29] MEDS: CEFEPIME/SWI 1gm 1 GM/10 ML SYR IV SCH (09:00)
[2017-09-29] MEDS: SERTRALINE HCL 100 MG TAB PO SCH (09:00)
[2017-09-29 16:18] VITALS: BP 160/91; TEMP 97.5
--- NOTE | 2017-09-30 04:07 | DS ---
Date of Discharge: 09/29/2017 Admitting Diagnosis: Acute respiratory distress. Discharge Diagnoses: 1.Acute respiratory distress. 2.Hypertension. 3.Chronic obstructive pulmonary disease, chronic bronchitis. 4.Status post trach. 5.Depression with anxiety. 6.Obesity. Body mass index 32. 7.Atrial fibrillation, paroxysmal. 8.Obstructive sleep apnea. 9.Generalized osteoarthritis. 10.Chronic respiratory failure with tracheostomy. 11.History of hepatitis. Hospital Course: The patient is a 66-year-old female, multiple admissions, comes in with shortness o f breath. The patient has a history of COPD, status post trach. The patient did have some sputum pr oduction and mucus plug which was suctioned out. The patient did significantly better after that. T he patient was doing well on 4 L via trach collar, which is her usual rate of oxygen. The patient ot [facility] did well. She was seen by Dr. Estrada over the weekend; he was covering for the hospitalist service. She did have growth from her sputum culture with Proteus. She was on cefepime IV. The gordo evans was then cleared for discharge from Dr. Estrada's standpoint. She was discharged home with [facility] to be set up. Diet: Low-sodium, fluid-restricted diet. Activity: Fall precautions. No strenuous activity. Followup: Follow up with primary care physician in 2-3 days. Follow up with manager mac, Dr. Bud augustin, in 2 weeks. Return to ER for worsening condition. Medications: As per medication reconciliation list. The patient will be continued on Brovana and At rovent nebulizers, finish off course of cefuroxime for the positive sputum cultures. The patient aristides l have a prednisone taper and to decrease her Lyrica dose to 75 mg daily, to discontinue her Dilaudid , and to only have the MS Contin for pain. Physical Examination: General: Awake, alert, oriented, no acute distress. CV: S1, S2. No murmurs. Neck: Trach collar in place. Respiratory: Moving air well bilaterally. No wheezing. Gastrointestinal: Abdomen is soft, nontender, nondistended. Positive bowel sounds. Extremities: No clubbing, cyanosis, or edema. Neurologic: Nonfocal. SA/MODL Voice ID: [id number] Report ID: [id number]
== END 2017-09-29 17:08 | disposition home health service (06) ==
LOC: ER 10:58 → INTOOBSV 12:58 → ERHOLD 12:58 → 2ND 18:18
PROVIDERS: ADMIT Internal Medicine Sleep Medicine; ATTEND Internal Medicine Sleep Medicine
DX: R06.03 Acute respiratory distress (principal); I48.91 Unspecified atrial fibrillation; R84.5 Abnormal microbiological findings in specimens from respiratory organs and thorax; B96.4 Proteus (mirabilis) (morganii) as the cause of diseases classified elsewhere; D64.9 Anemia, unspecified; I10 Essential (primary) hypertension; I48.0 Paroxysmal atrial fibrillation; J44.9 Chronic obstructive pulmonary disease, unspecified; T17.990A Other foreign object in respiratory tract, part unspecified in causing asphyxiation, initial encounter; F41.8 Other specified anxiety disorders; Z98.84 Bariatric surgery status; E66.9 Obesity, unspecified; Z68.32 Body mass index [BMI] 32.0-32.9, adult; G47.33 Obstructive sleep apnea (adult) (pediatric); M15.9 Polyosteoarthritis, unspecified; Z96.651 Presence of right artificial knee joint; Z86.19 Personal history of other infectious and parasitic diseases; Z93.0 Tracheostomy status
CPT/HCPCS: 36415 ×3; 51702; 71045; 80048 ×2; 80053; 80076; 81003; 82550; 82553; 82805; 82962 ×8; 83605; 83735; 83880; 84484; 85025 ×2; 85610; 85730; 87040 ×2; 87070; 87077; 87086; 87088; 87186; 87205; 93005; 94640 ×2; 96365; 96375; 97116; 97163; 97530; 99285; G0378 ×2; J0692 ×3; J2920 ×6; J2930; J3370; J7030; J7605 ×4